=== PATIENT | female | born 1945 | race Caucasian/White ===

== ENCOUNTER 2021-11-25 18:41 | Emergency (ER) | payer MEDICARE, SELFPAY ==
--- NOTE | ~2021-11-25 | XR_ITS ---
EXAMINATION: XR HAND, RIGHT CLINICAL INFORMATION: Bruising swelling and pain COMPARISON: None TECHNIQUE: PA, lateral, and oblique views of the right hand. FINDINGS: No acute fracture or dislocation. Bone fragment adjacent to the ulnar styloid compatible with remote injury. Joint spaces the wrist are maintained. Minimal subchondral sclerosis/degenerative change the first CMC joint. MCP joint spaces are preserved. Mild IP joint osteoarthritis with small osteophytes most prominently at the fifth DIP joint. XR/XR hand RT min 3V IMPRESSION: No acute fracture or dislocation.
[2021-11-25 18:50] VITALS: BP 163/89; PULSE 110; RESP 18; TEMP 36.7; O2SAT 97; BMI 28.9
--- NOTE | 2021-11-25 20:18 | ED_ITS ---
HPI - Animal Bite General Chief Complaint: Animal Bite Stated Complaint: cat scratch on hand Time Seen by Provider: 11/25/21 21:52 Source: patient Mode of arrival: ambulatory Limitations: no limitations History of Present Illness HPI narrative: 76-year-old female presents for cat bite injury to the right hand that occurred last night. She noted some ecchymosis and swelling to the site, also noted some ecchymosis to the left wrist. Noted that she had a pinching sensation but does not recall any injury or trauma. She is concerned because she takes Coumadin. She has been scratched and bitten by her cat before but has not had any significant bruising or swelling prior. She has full range of motion to all d igits, and does not report fevers, chills, palpitations, dizziness, diaphoresis, or weakness. MD complaint: animal bite Onset (ago): day(s) (1) Animal: cat Description of animal: household pet and immunizations UTD Mechanism: bite and scratch Location - Extremities: right: hand Pain description: dull Severity scale (1-10): 2 Context: playing with animal Associated symptoms: erythema Related Data Patient tetanus UTD: No Previous Rx's Medication Instructions Recorded doxycycline monohydrate 100 mg 100 mg PO BID 10 days #20 caps 11/25/21 capsule Allergies Allergy/AdvReac Type Severity Reaction Status Date / Time adhesive tape AdvReac Intermediate Rash Verified 11/25/21 18:49 erythromycin base AdvReac Intermediate Diarrhea Verified 11/25/21 18:49 Penicillins AdvReac Intermediate Diarrhea Verified 11/25/21 18:49 Review of Systems Review of Systems: Constitutional: No Fever, No Chills ENT/Mouth: No Ear Pain, No Hoarseness, No sore throat Eyes: No Eye Pain, No Swelling, No Redness, No Foreign Body Cardiovascular: No Chest Pain, No SOB Respiratory: No Cough, No Dyspnea Gastrointestinal: No Nausea, No Vomiting, No Diarrhea, No abdominal Pain Genitourinary: No Dysuria, No Hematuria Musculoskeletal: positive right hand pain, No Myalgias, No Joint Swelling Skin: Multiple abrasions to the right hand, ecchymosis noted to the right hand and left wrist, No Skin lacerations, No rash Neuro: No Weakness, No Numbness, No Paresthesias, No Loss of Consciousness, No Dizziness, No Headache Psych: No Anxiety/Panic, No Depression Heme/Lymph: Positive easy bruising, no Lymphadenopathy Endocrine: No Polyuria, No Polydipsia Yes all other systems are reviewed and are negative [facility] Past Medical History Attestation statement: The following information was validated with the patient. Source: old records reviewed Social History Social History Advance Directives: No Advance Directives Information Provided: Yes Physical Exam ED Vital Signs: Vital Signs - 24 hr 11/25/21 18:50 Temperature 98.1 F Pulse Rate 110 H Respiratory Rate 18 Blood Pressure 163/89 H Pulse Oximetry 97 Oxygen Delivery Method Room Air BMI result Body Mass Index 28.9 Appearance: Alert. Oriented X3. No acute distress. Eyes: Pupils equal, round and reactive to light. ENT: Pharynx normal. Neck: Normal inspection. Neck supple. CVS: Tachycardic heart rate and rhythm. Pulses normal. Respiratory: No respiratory distress. Breath sounds normal. Abdomen: Soft and nontender. Skin: Multiple abrasions to the right hand, ecchymoses from the thenar process to the dorsal aspect of the right hand to the 3rd metacarpal. Skin warm and dry. Normal skin color. Normal skin turgor. Extremities: No lower extremity edema. Full range of motion to wrist and hands, strength 5/5 to all digits. Neuro: No motor deficit. No sensory deficit. Cranial nerves 2-12 intact. Course Course Course Narrative: 76-year-old female presents with injury from a cat bite to the right hand and bruising to the left wrist. Cat is fully vaccinated, patient is tachycardic on triage vitals. Will order labs, INR, and lactic with cultures. Patient does have ecchymosis and swelling to the right hand, no fluctuance or purulent drainage noted. Will order x-rays. Unknown when last Tdap vaccine was updated. X-rays are negative for acute findings. Labs are unremarkable. No indication of elevated white count lactic is negative. INR 1.8. She will follow-up with primary care physician regarding Coumadin dosing. Will treat with doxycycline as patient is allergic to penicillins. I did discuss photosensitivity reaction with doxycycline, patient understood that she must wear sunscreen, hat and long sleeves. Patient verbalized understanding of and agrees plan of care discharge home. Verbalized understanding of signs and symptoms indicating need for emergent intervention MDM - Animal Bite Differential Diagnosis Differential diagnosis: Likely cat bite Medical Records Attestation: I reviewed the patient's medical records. Lab Data Attestation: I reviewed the patient's lab results. Result diagrams: 11/25/21 21:36 11/25/21 22:00 Labs: Lab Results 11/25/21 11/25/21 11/25/21 Range/Units 21:36 21:36 21:36 WBC 7.5 (4.8-10.8) X10*3/uL RBC 4.85 (4.20-5.50) X10*6/uL Hgb 15.3 (12.0-16.0) g/dl Hct 45.7 (37.0-47.0) % MCV 94.2 (80.0-98.0) fL MCH 31.5 (27.0-33.0) pg MCHC 33.5 (31.0-35.0) g/dl RDW 13.5 (11.0-16.0) % Plt Count 227 (160-400) X10*3/uL MPV 9.7 (9.4-12.3) fL Immature Gran % (Auto) 0.3 (0.0-0.4) % Neut % (Auto) 61.3 (45-73) % Lymph % (Auto) 28.2 (20-40) % [place] % (Auto) 7.4 (2-11) % Eos % (Auto) 2.4 (0-4) % Baso % (Auto) 0.4 (0-2) % Lymph # (Auto) 2.1 (1.2-4.9) X10*3/uL [place] # (Auto) 0.6 (0.1-1.2) X10*3/uL Eos # (Auto) 0.2 (0.0-0.4) X10*3/uL Baso # (Auto) 0.0 (0.0-0.2) X10*3/uL Abs Immat Gran (auto) 0.02 (0.00-0.03) X10*3/uL Absolute Neuts (auto) 4.6 (2.0-8.3) x10*3/uL Absolute Nucleated RBC 0.000 (0.0-0.012) X10*3/uL Nucleated RBC % (auto) 0.0 (0.0-0.2) /100WBC PT 21.6 H (10.0-13.1) SEC INR 1.8 H (0.9-1.1) APTT 42.6 H (26.0-36.4) SEC Sodium (135-145) mmol/L Potassium (3.3-5.1) mmol/L Chloride (96-108) mmol/L Carbon Dioxide (22-29) mmol/L Anion Gap (12-20) BUN (9-16) mg/dL Creatinine (0.5-1.4) mg/dL Estim Creat Clear Calc Estimated GFR Random Glucose (60-115) mg/dL Lactic Acid 0.9 (0.5-2.0) mmol/L Calcium (8.4-10.2) mg/dL 11/25/21 Range/Units 22:00 WBC (4.8-10.8) X10*3/uL RBC (4.20-5.50) X10*6/uL Hgb (12.0-16.0) g/dl Hct (37.0-47.0) % MCV (80.0-98.0) fL MCH (27.0-33.0) pg MCHC (31.0-35.0) g/dl RDW (11.0-16.0) % Plt Count (160-400) X10*3/uL MPV (9.4-12.3) fL Immature Gran % (Auto) (0.0-0.4) % Neut % (Auto) (45-73) % Lymph % (Auto) (20-40) % [place] % (Auto) (2-11) % Eos % (Auto) (0-4) % Baso % (Auto) (0-2) % Lymph # (Auto) (1.2-4.9) X10*3/uL [place] # (Auto) (0.1-1.2) X10*3/uL Eos # (Auto) (0.0-0.4) X10*3/uL Baso # (Auto) (0.0-0.2) X10*3/uL Abs Immat Gran (auto) (0.00-0.03) X10*3/uL Absolute Neuts (auto) (2.0-8.3) x10*3/uL Absolute Nucleated RBC (0.0-0.012) X10*3/uL Nucleated RBC % (auto) (0.0-0.2) /100WBC PT (10.0-13.1) SEC INR (0.9-1.1) APTT (26.0-36.4) SEC Sodium 142 (135-145) mmol/L Potassium 4.0 (3.3-5.1) mmol/L Chloride 106 (96-108) mmol/L Carbon Dioxide 26 (22-29) mmol/L Anion Gap 14 (12-20) BUN 13 (9-16) mg/dL Creatinine 1.06 (0.5-1.4) mg/dL Estim Creat Clear Calc 46.8 Estimated GFR 50 Random Glucose 101 (60-115) mg/dL Lactic Acid (0.5-2.0) mmol/L Calcium 8.6 (8.4-10.2) mg/dL Imaging Data Hand x-ray: Attestation: I personally reviewed and interpreted this imaging study as follows: Radiologist's impression: EXAMINATION: XR HAND, RIGHT CLINICAL INFORMATION: Bruising swelling and pain? COMPARISON: None? TECHNIQUE: PA, lateral, and oblique views of the right hand. FINDINGS: No acute fracture or dislocation. Bone fragment adjacent to the ulnar styloid compatible with remote injury. Joint spaces the wrist are maintained. Minimal subchondral sclerosis/degenerative change the first CMC joint. MCP joint spaces are preserved. Mild IP joint osteoarthritis with small osteophytes most prominently at the fifth DIP joint.? XR/XR hand RT min 3V IMPRESSION: No acute fracture or dislocation. Discharge Plan Discharge Clinical Impression: Cat bite Patient Disposition: Home, Self-Care Instructions: Animal Bite (ED) Additional Instructions: You were evaluated for a cat bite to the right hand and forearm. We are treating you with doxycycline 100 mg twice a day for the next 10 days. This medication has a photosensitive reaction. Please wear hat, long sleeves and sunscreen while going out into the sunshine. Follow-up with primary care provider. Your INR is 1.8. Thank you for choosing this emergency department for evaluation. Please fo llow-up with primary care physician as needed. Return to the emergency department for any new, concerning, or worsening symptoms. Prescriptions: New doxycycline monohydrate 100 mg capsule 100 mg PO BID 10 Days Qty: 20 0RF Interventions: ED Discharge Assessment Last Done: 11/25/21 23:30 Discharge Date/Time: 11/25/21 23:32
[2021-11-25 21:43] LABS: Basophils Percent Auto 0.4 % (0-2); Eosinophils Absolute Auto 0.2 X10*3/uL (0.0-0.4); Eosinophils Percent Auto 2.4 % (0-4); Hematocrit 45.7 % (37.0-47.0); Hemoglobin 15.3 g/dl (12.0-16.0); Imm Gran Abs Auto 0.02 X10*3/uL (0.00-0.03); Imm Gran Pct Auto 0.3 % (0.0-0.4); Lymphocytes Absolute Auto 2.1 X10*3/uL (1.2-4.9); Lymphocytes Percent Auto 28.2 % (20-40); MANUAL DIFF FLAG NO; Mean Corpuscular HGB Conc 33.5 g/dl (31.0-35.0); Mean Corpuscular Hemoglobin 31.5 pg (27.0-33.0); Mean Corpuscular Volume 94.2 fL (80.0-98.0); Mean Platelet Volume 9.7 fL (9.4-12.3); Monocytes Absolute Auto 0.6 X10*3/uL (0.1-1.2); Monocytes Percent Auto 7.4 % (2-11); Neutrophils Absolute Auto 4.6 x10*3/uL (2.0-8.3); Neutrophils Percent Auto 61.3 % (45-73); Platelet Count 227 X10*3/uL (160-400); Red Blood Count 4.85 X10*6/uL (4.20-5.50); Red Cell Distribution Width 13.5 % (11.0-16.0); White Blood Count 7.5 X10*3/uL (4.8-10.8)
[2021-11-25 21:53] LABS: Lactic Acid 0.9 mmol/L (0.5-2.0)
[2021-11-25 21:55] LABS: INTERNATIONAL NORM RATIO 1.8 (0.9-1.1); Prothrombin Time 21.6 SEC (10.0-13.1)
[2021-11-25 21:58] LABS: Partial Thromboplastin Time 42.6 SEC (26.0-36.4)
[2021-11-25] MEDS: Diphth,Pertus(ACell),Tet Adult 0.5 ML SYRINGE IM (22:01)
[2021-11-25 22:31] LABS: Anion Gap 14 (12-20); Blood Urea Nitrogen 13 mg/dL (9-16); Calcium 8.6 mg/dL (8.4-10.2); Carbon Dioxide 26 mmol/L (22-29); Chloride 106 mmol/L (96-108); Creatinine Clr Calc Pharmacy 46.8; Estimated Glomerular Filt Rate 50; Glucose Random 101 mg/dL (60-115); Sodium 142 mmol/L (135-145)
== END 2021-11-25 23:32 | disposition home or self-care (01) ==
PROVIDERS: Nurse Practitioner Family; Emergency Provider Emergency Medicine
DX: S60.571A Other superficial bite of hand of right hand, initial encounter (principal); M79.641 Pain in right hand; W55.01XA Bitten by cat, initial encounter; Y93.9 Activity, unspecified; Y92.9 Unspecified place or not applicable; Y99.9 Unspecified external cause status; Z79.899 Other long term (current) drug therapy
CPT/HCPCS: 36415; 73130; 80048; 83605; 85025; 85610; 85730; 87040; 90471; 90715; 99282; 99284

== ENCOUNTER 2024-05-08 07:10 | Emergency (ER) | payer MEDICARE, SELFPAY ==
--- NOTE | ~2024-05-08 | XR_ITS ---
CLINICAL HISTORY: Fall, clavicular pain. 1 view left clavicle Comparison: None Findings: There is an acute nondisplaced fracture of left distal clavicle. Soft tissue structures appear intact. IMPRESSION: Acute nondisplaced fracture of left distal clavicle. This document has been electronically signed by: Jose E Disla on 05/08/2024 07:57:55
--- NOTE | ~2024-05-08 | XR_ITS ---
CLINICAL HISTORY: fall, pain 3 view left shoulder Comparison: None Findings: There is a nondisplaced fracture of the left distal clavicle. Soft tissue structures appear intact. IMPRESSION: 1. Nondisplaced fracture of the left distal clavicle. This document has been electronically signed by: Jose E Disla on 05/08/2024 07:52:18
--- NOTE | ~2024-05-08 | CT_ITS ---
CLINICAL HISTORY: S p mechanical fall on Coumadin CT head without contrast Comparison: None Findings: Bilateral periventricular hypodensities present. Age-related cortical volume loss is seen with associated mild prominence of the ventricular system. There is no evidence of hemorrhage, mass, or acute infarction. The visualized paranasal sinuses and mastoid air cells are normal. The orbits are unremarkable. No skull fracture. IMPRESSION: 1. No acute intracranial findings. 2. Mild chronic microvascular ischemic disease. This document has been electronically signed by: Jose E Disla on 05/08/2024 08:33:43
[2024-05-08 07:13] VITALS: BP 170/93; PULSE 82; RESP 19; TEMP 36.3; O2SAT 98; BMI 29.2
--- OUTSIDE RECORDS SUMMARY | 2024-05-08 07:13 | XMS_ITS | Patient Health Record ---
[facility] re[facility]riston Address [address] [place] [address] Care Team Providers Care Service Girl Name Role Phone Johnny Baptiste [facility], [facility] Provi saray Unavailable Елена Sahni Unavailable [phone] Allergies Allergen (clinical drug ingredient) Drug/Non Drug Allergy documented on EMR Reaction Allergy Type Onset Date Status Biaxin diarrhea Drug Allergy Active azithromycin Zithromax Z-Kenny diarrhea Drug Allergy Active Adhesive rash Allergy Active erythromycin Erythromycin diarrhea Drug Allergy A ctive Latex Latex rash Allergy Active Penicillin diarrhea Drug Allergy Active Reason For Referral No Information Medications Medication SIG (Take, Route, Frequency, Duration) Notes Start Date End Date Status Calcium + D3 Active Famotidine 20 MG Oral for 90 A ctive Ciclopirox Olamine 0.77 % 1 application to affected area Externally to feet Twice a day for 30 days Active Lisinopril 20 MG Oral for 90 A ctive Loratadine 10 MG as directed Orally Active Metoprolol Succinate ER 100 MG Oral for 90 Active Warfarin Sodium 5 MG Oral for 90 Active Immunizations Vaccine Route Administration Date Status Comme nts COVID-19 Moderna Vaccine Unknown 04/02/2021 Administered First Dose:06/20/20 Second Dose: 07/18/20 Social History Tobacco Use: Social History Observation Description Date Details (start date - stop date) Never Smoker NA - NA Tobacco Use/Smoking Question Answer Notes Are you a: nonsmoker Alcohol Screen Question Answer Notes Did you have a drink contain ing alcohol in the past year? Yes How often did you have a dri nk containing alcohol in the past year? Monthly or less (1 point) How often did you have 6 or more drinks on one occasion in the past year? Less than monthly (1 point) Points 2 Interpretation Negative Tobacco use other than smoking: Question Answer Notes Are you an other tobacco user? No Problems Problem Type SNOMED Code ICD Code Onset Dates Problem Status W/U Status Risk Notes Problem [id number] Osteoarthritis o f right ankle and foot (M19.071) Active confirmed Plan Of Treatment Pending Test Test Name Order Date X ray : Foot, right 3V 04/25/2021 Insurance Providers Payer Name Payer Address Payer Phone Subscriber Number Group Number Insured Name Patient Relationship to Insured Coverage Start Date Coverage End Date Medicare National [employer] [address] [place] [address] [id number] Erika Parker Self - patient is the insured [employer] [address] [place] [address] [id number] Erika Parker Self - patient is the insured Medical (General) History Medical History History ICD Code Back,Hip,and Knee pain CAD (Cholesterol) Gall bladder Heart disease High blood pressure Reflux ( GERD) Sciatica Headaches/Migraines Chicken pox Surgical History Surgery Date(Month/Year) gall bladder hysterectomy labiaplasty
--- NOTE | 2024-05-08 07:32 | ED.FALL ---
HPI - Fall General Chief Complaint: Fall Stated Complaint: fall 05/07, shoulder pain Time Seen by Provider: 05/08/24 07:25 Source: patient and family (Son) Mode of arrival: ambulatory Limitations: no limitations History of Present Illness ED Provider: DR. 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 Related Data Previous Rx's ?Medication ?Instructions ?Recorded doxycycline monohydrate 100 mg 100 mg PO BID 10 days #20 caps 11/25/21 capsule Allergies Allergy/AdvReac Type Severity Reaction Status Date / Time adhesive tape AdvReac Intermediate Rash Verified 05/08/24 07:17 erythromycin base AdvReac Intermediate Diarrhea Verified 05/08/24 07:17 Penicillins AdvReac Intermediate Diarrhea Verified 05/08/24 07:17 Review of Systems Review of Systems: All other systems are reviewed and are negative Constitutional: Reports as per HPI and Reports no additional constitutional complaints Eyes: Reports as per HPI and Reports no additional eye complaints Reports system reviewed and no additional complaints, except as documented Cardiovascular: Reports as per HPI and Reports no additional cardiovascular complaints Respiratory: Reports as per HPI and Reports no additional respiratory complaints Gastrointestinal: Reports as per HPI and Reports no additional gastrointestinal complaints Genitourinary: Reports no additional female genitourinary complaints Musculoskeletal: Reports no additional musculoskeletal complaints Skin/Breast: Reports system reviewed and no additional complaints, except as docu Psychiatric: Reports no additional psychiatric complaints Endocrine: Reports no additional endocrine complaints Hematologic/Lymphatic: Reports no additional hematologic/lymphatic complaints Allergic/Immunologic: Reports no additional allergic/immunologic complaints Reports system reviewed and no additional complaints, except as documented and Reports Abnormal speech present [facility] Social History Social History Advance Directives: No Advance Directives Information Provided: Yes Do you have a plan to hurt others: No Plan Physical Exam Vital Signs: Vital Signs: Last Vital Signs Temp 97.4 F 05/08/24 07:13 Pulse 82 05/08/24 07:13 Resp 19 05/08/24 07:13 BP 170/93 H 05/08/24 07:13 Pulse Ox 98 05/08/24 07:13 O2 Del Method Room Air 05/08/24 07:13 BMI result Body Mass Index 29.2 Vital signs have been reviewed and appear to be correct. Blood pressure elevated. Heart rate normal. Respiratory rate normal. Temperature normal. Oxygen saturation normal. Appearance: Alert. Oriented X3. No acute distress. Head: Normal external exam. Normocephalic. Atraumatic. No Read signs noted. No raccoon eyes noted Eyes: PERRLA. EOMI. Conjunctiva and sclera normal. Eyelids normal. ENT: TM's Normal. Pharynx normal. Uvula midline. Moist mucous membranes. No trismus noted. No drooling noted. No muffled voice noted. Neck: Normal inspection. Neck supple. FROM. No adenopathy. Thyroid Normal. No meningeal signs. No neck mass noted. CVS: Normal heart rate and rhythm. Heart sound normal. No murmurs noted. Pulses normal throughout. Respiratory: No respiratory distress. Painless inspiration. Breath sounds normal. No wheezes/rales/rhonchi noted. Chest nontender. No accessory muscle usage noted or decreased air movement noted. Abdomen: Soft and nontender. Bowel sounds normal in all 4 quadrants. No distention noted. No organomegaly noted. No visible injury noted. Back: No CVA tenderness. Full range of motion noted. Skin: Skin warm and dry. Normal skin color. Normal skin turgor. No rashes/lesions/lacerations noted. Extremities: Left shoulder: No deformity, limited range of motion due to pain, left upper extremity is neurovascularly intact. Neuro: Oriented X 3. Cranial nerve exam: II-XII are grossly intact No motor deficit. No sensory deficit. Reflexes normal. Course Reevaluation(s) Reevaluation #1: S/p mechanical fall with right shoulder pain, no acute fracture dislocation on x-ray. X-ray demonstrate left clavicular fracture, sling and follow-up with orthopedic use Tylenol or ibuprofen if needed for pain. GCS of 15, normal neuro exam, head CT is unremarkable for bleed, INR is subtherapeutic patient was instructed to take 1 extra Coumadin (5 mg tablet) and follow-up with her Coumadin Clinic. Time: 10:30 Medical Decision Making Differential Diagnosis Differential Diagnoses: The differential diagnosis associated with the presentation includes (Intracranial bleed, left shoulder fracture, left shoulder dislocation, left clavicle fracture, coagulopathy, severe anemia, electrolyte derangement.) Admission/Observation Consideration of admission/observation: Escalation of care including admission/observation considered Lab Data MDM Lab Attestation statement: I reviewed the patient's lab results. 05/08/24 07:48 05/08/24 07:48 Labs: Lab Results 05/08/24 Range/Units 07:48 WBC 8.7 (4.8-10.8) X10*3/uL RBC 4.29 (4.20-5.50) X10*6/uL Hgb 14.0 (12.0-16.0) g/dl Hct 40.9 (37.0-47.0) % MCV 95.3 (80.0-98.0) fL MCH 32.6 (27.0-33.0) pg MCHC 34.2 (31.0-35.0) g/dl RDW 13.7 (11.0-16.0) % Plt Count 208 (160-400) X10*3/uL MPV 9.8 (9.4-12.3) fL Immature Gran % (Auto) 0.3 (0.0-0.4) % Neut % (Auto) 77.2 H (45-73) % Lymph % (Auto) 15.0 L (20-40) % [place] % (Auto) 5.8 (2-11) % Eos % (Auto) 1.1 (0-4) % Baso % (Auto) 0.6 (0-2) % Lymph # (Auto) 1.3 (1.2-4.9) X10*3/uL [place] # (Auto) 0.5 (0.1-1.2) X10*3/uL Eos # (Auto) 0.1 (0.0-0.4) X10*3/uL Baso # (Auto) 0.1 (0.0-0.2) X10*3/uL Abs Immat Gran (auto) 0.03 (0.00-0.03) X10*3/uL Absolute Neuts (auto) 6.7 (2.0-8.3) x10*3/uL Absolute Nucleated RBC 0.000 (0.0-0.012) X10*3/uL Nucleated RBC % (auto) 0.0 (0.0-0.2) /100WBC PT 19.7 H (10.9-12.4) SEC INR 1.7 H (0.9-1.1) Sodium 138 (135-145) mmol/L Potassium 3.9 (3.3-5.1) mmol/L Chloride 107 (96-108) mmol/L Carbon Dioxide 26 (22-29) mmol/L Anion Gap 9 L (12-20) BUN 12 (9-16) mg/dL Creatinine 0.84 (0.5-1.4) mg/dL Estim Creat Clear Calc 55.4 Estimated GFR > 60 Random Glucose 98 (60-115) mg/dL Calcium 9.2 D (8.4-10.2) mg/dL Independent Interpretation I performed an independent interpretation of an: Plain X-Ray (Left shoulder/left clavicular x-ray: Left clavicular fracture.) and CT Scan (Head: No acute intracranial pathology.) Radiology Impression Discussion of test interpretation with radiology: I have reviewed the radiologist's reading. Discharge Plan Discharge Clinical Impression: Contusion of left shoulder, Closed fracture of left clavicle, Subtherapeutic international normalized ratio (INR) Patient Disposition: Home, Self-Care Instructions: Clavicle Fracture (ED), Contusion in Adults (ED) Additional Instructions: Take extra 5 mg of Coumadin tonight and recheck with your Coumadin clinic. Prescriptions: No Action doxycycline monohydrate 100 mg capsule 100 mg PO BID 10 Days Qty: 20 0RF Referrals: Dino Wright MD [Physician] - Jermain Delgado MD [Primary Care Provider] - Print Language: Telugu
[2024-05-08 07:55] LABS: MANUAL DIFF FLAG NO
[2024-05-08 07:57] LABS: Basophils Absolute Auto 0.1 X10*3/uL (0.0-0.2); Basophils Percent Auto 0.6 % (0-2); Eosinophils Absolute Auto 0.1 X10*3/uL (0.0-0.4); Eosinophils Percent Auto 1.1 % (0-4); Hematocrit 40.9 % (37.0-47.0); Imm Gran Abs Auto 0.03 X10*3/uL (0.00-0.03); Imm Gran Pct Auto 0.3 % (0.0-0.4); Lymphocytes Absolute Auto 1.3 X10*3/uL (1.2-4.9); Mean Corpuscular HGB Conc 34.2 g/dl (31.0-35.0); Mean Corpuscular Hemoglobin 32.6 pg (27.0-33.0); Mean Corpuscular Volume 95.3 fL (80.0-98.0); Mean Platelet Volume 9.8 fL (9.4-12.3); Monocytes Absolute Auto 0.5 X10*3/uL (0.1-1.2); Monocytes Percent Auto 5.8 % (2-11); Neutrophils Absolute Auto 6.7 x10*3/uL (2.0-8.3); Neutrophils Percent Auto 77.2 % (45-73); Platelet Count 208 X10*3/uL (160-400); Red Blood Count 4.29 X10*6/uL (4.20-5.50); Red Cell Distribution Width 13.7 % (11.0-16.0); White Blood Count 8.7 X10*3/uL (4.8-10.8)
[2024-05-08 08:07] LABS: INTERNATIONAL NORM RATIO 1.7 (0.9-1.1); Prothrombin Time 19.7 SEC (10.9-12.4)
[2024-05-08 08:12] LABS: Anion Gap 9 (12-20); Blood Urea Nitrogen 12 mg/dL (9-16); Calcium 9.2 mg/dL (8.4-10.2); Carbon Dioxide 26 mmol/L (22-29); Chloride 107 mmol/L (96-108); Creatinine Clr Calc Pharmacy 55.4; Estimated Glomerular Filt Rate > 60; Glucose Random 98 mg/dL (60-115); Potassium 3.9 mmol/L (3.3-5.1); Sodium 138 mmol/L (135-145)
--- NOTE | 2024-05-08 09:14 | PC.NURSE ---
patient noted to have left clavicle fracture, patient has bruise on left clavicle
--- NOTE | 2024-05-08 09:17 | PC.NURSE ---
sling applied to patient left arm
[2024-05-08 09:19] VITALS: BP 158/84; PULSE 82; RESP 20; TEMP 36.1; O2SAT 97
== END 2024-05-08 09:20 | disposition home or self-care (01) ==
PROVIDERS: Emergency Provider Emergency Medicine; PCP Family Medicine
DX: S42.035A Nondisplaced fracture of lateral end of left clavicle, initial encounter for closed fracture (principal); S40.012A Contusion of left shoulder, initial encounter; W01.0XXA Fall on same level from slipping, tripping and stumbling without subsequent striking against object, initial encounter; I48.91 Unspecified atrial fibrillation; R79.1 Abnormal coagulation profile; M25.512 Pain in left shoulder; Y93.G1 Activity, food preparation and clean up; Y92.010 Kitchen of single-family (private) house as the place of occurrence of the external cause; Y99.9 Unspecified external cause status; Z79.01 Long term (current) use of anticoagulants
CPT/HCPCS: 36415; 70450; 73000; 73030; 80048; 85025; 85610; 99284

== ENCOUNTER → 2024-05-08 07:35 | Outpatient (BNV) | payer MEDICARE, SELFPAY | PROVIDERS: Emergency Provider Emergency Medicine; PCP Family Medicine; Visit Provider Radiology Vascular & Interventional Radiology | DX: I67.82 Cerebral ischemia (principal); G89.11 Acute pain due to trauma; S42.035A Nondisplaced fracture of lateral end of left clavicle, initial encounter for closed fracture | CPT/HCPCS: 70450; 73000; 73030 ==

== ENCOUNTER → 2024-05-26 09:54 | Outpatient (BNV) | payer MEDICARE, SELFPAY | PROVIDERS: Visit Provider Radiology Diagnostic Radiology | DX: S42.035D Nondisplaced fracture of lateral end of left clavicle, subsequent encounter for fracture with routine healing (principal) | CPT/HCPCS: 73000 ==

== ENCOUNTER 2024-05-26 10:26 | Outpatient (REF) | payer MEDICARE, SELFPAY ==
--- NOTE | ~2024-05-26 | XR_ITS ---
EXAMINATION: XR CLAVICLE LEFT HISTORY: M89.8X1 - Other specified disorders of bone, shoulder COMPARISON: Comparison is made with the prior examination dated 05/08/2024. FINDINGS: Two views of the left clavicle are submitted. Osseous mineralization is normal. Again seen is a nondisplaced fracture of the distal clavicle. The fracture line remains visible. The AC joint is intact. The soft tissues are unremarkable. XR/XR clavicle LT IMPRESSION: Nondisplaced fracture of the distal clavicle without change. Electronically signed by: Bhanu Ellington MD 05/27/2024 07:15 AM [facility]
--- OUTSIDE RECORDS SUMMARY | 2024-05-27 13:58 | XMS_ITS | Data Portability ---
Author Organization EL[facility] Cowan [facility] [address] Address [address] [place] [address] Care Team Providers Care Audio Visual Coordinator Name Role Phone [facility] Primary Care Provider [phone] Assessment No assessment recorded. Plan of Treatment Reminders Order Date Submit Date Provider Last Modified By Organization Details Last Modified Time Details Appointments None record ed. Lab None record ed. Referral None record ed. Procedures None record ed. Surgeries None record ed. Imaging None record ed. Medication Orders None record ed. Patient TargetsNo targets recorded. Patient Instructions Encounter Date Encounter Id Patient Instructions Last Modified By Organization Details Last Modified Time 05/28/2022 [id number] knee pain or injury: care instructions Not available 05/28/2022 12:26:45 Recommend alternating ice and heat for comfort. Can trial topical pain medications such as Voltaren gel, Aspercreme, Salonpas or Arnica. Continue Tylenol as needed Not available 05/28/2022 12:39:29 Reason for Referral None Reported. Problems Name Problem SNOMED Code Status Onset Date Resolution Date Notes Provider Name and Address Organization Details Recorded Time Hypertensive disorder 80304300 Active 2022 BANRaeann reese, PA - [facility] 3 12:12:42 Atrial fibrillation 83944256 Active 2022 BAN reese, PA - [facility] 3 12:13:58 Problem Notes None recorded. Procedures Surgical History Date Name Laterality Status Provider Name and Address Organization Details Recorded Time 05/28/19 23 Liang Bandage completed Josey Castelan, DO [address] [place], [address], PA - [facility] 05/28/2022 12:45:40 hysterectomy completed BAN DEPINTO PA - [facility] 05/28/2022 12:15:02 cholecystectomy completed BAN DEPINTO PA - [facility] 05/28/2022 12:15:09 procedure on urinary bladder completed BAN DEPINTO PA - [facility] 05/28/2022 12:16:04 Imaging Results None recorded. Procedure Notes None recorded. Medical Equipment None Reported. Allergies Allergen ID Allergen Name Allergen Category Reaction Reaction Severity Criticality Documentation Date Start Date Code Code System Note Provider Name and Address Organization Details Recorded Time 775508 Product containin g penicilli n and antibioti c (product) medicatio n diarrhea Not available Not available 05/28/2022 53953 05 SNOMED BAN DEPINTO null, PA - [facility] 3 12:10:00 061106 erythromy vanessa medicatio n other Not available Not available 05/28/2022 4053 RxNorm BAN DEPINTO null, PA - [facility] 3 12:10:08 503960 adhesive tape environme nt,medica tion rash severe Not available 05/28/2022 65193 UNK BAN DEPINTO null, PA - [facility] 3 12:11:06 Medications Name Sig Start Date Stop Date Status Note LastModified by Organization Details LastModified Time lisinopril 20 mg tablet active Not Available Not Available No t Available metoprolol succinate ER 100 mg tablet,extend ed release 24 hr active Not Available Not Available Not Available famotidine 20 mg tablet active Not Available Not Available No t Available doxycycline monohydrate 100 mg capsule TAKE 1 CAP ORALLY 2 TIMES A DAY FOR 10 DAYS 05/28 completed Not Available Not Available Not Available warfarin 5 mg tablet active Not Available Not Available Not Available calcium active Not Available Not Avail able Not Available Vitals Date Recorded Body height Provider Name an d Address Organization Details Last Updated DateTime 05/28/2022 162.56 cm BAN DEPINTO PA - [facility] 0 05/28/2022 12:09:10 Date Recorded Body mass index (BMI) Body weight Provider Name and Address Organization Details Last Updated DateTime 05/28/2022 30 kg/m2 56236.66 g BAN DEPINTO PA - [facility] 05/28/2022 12:09:13 Date Recorded Pain severity - 0-10 verbal numeric rating [Score] - Reported Provider Name and Address Organization Details Last Updated DateTime 05/28/2022 0 BAN LESLIEO PA - [facility] 0 05/28/2022 12:09:35 Date Recorded Respiratory rate Provider Name a nd Address Organization Details Last Updated DateTime 05/28/2022 18 /min BAN LESLIEO PA - [facility] 0 05/28/2022 12:16:47 Date Recorded Oxygen saturation Oxygen saturation in Arterial blood by Pulse oximetry Provider Name and Address Organization Details Last Updated DateTime 05/28/2022 99 % 99 % BAN LESLIEO PA - [facility] 05/28/2022 12:17:11 Date Recorded Heart rate Provider Name an d Address Organization Details Last Updated DateTime 05/28/2022 61 /min BAN LESLIEO PA - [facility] 0 05/28/2022 12:17:13 Date Recorded Body temperature Provider Name a nd Address Organization Details Last Updated DateTime 05/28/2022 97.4 [degF] BAN LESLIEO PA - [facility] 05/28/2022 12:17:37 Date Recorded Systolic blood pressure Diastolic blood pressure Provider Name and Address Organization Details Last Updated DateTime 05/28/2022 123 mm[Hg] 74 mm[Hg] BAN LESLIEO PA - [facility] 05/28/2022 12:17:16 Social History Question Answer Notes LastModified by Organizat ion Details LastModified Time Tobacco Smoking Status Never Smoker BAN LESLIEAnthony reese, PA - [facility] 05/28/2022 12:14:44 What Is Your Level Of Alcohol Consumption? Occasional Information not available 05/28/2022 How Many Times Per Week Do You Consume Alcohol? Less Than 1 Time Per Week Information not available 05/28/2022 Do You Use Any Illicit Or Recreational Drugs? No Information not available 05/28/2022 Have You Recently Traveled Abroad? No Information not available 05/28/2022 Do You Or Have You Ever Used Any Other Forms Of Tobacco Or Nicotine? No Information not available 05/28/2022 Sex: Unknown Functional Status None recorded. Mental Status None recorded. Family History Relationship Description Onset Age of this Age Resolved Age Notes LastModified by Organization Details LastModified Time Father No current problems or disability Not available 05/28 12:14:31 Mother No current problems or disability Not available 05/28 12:14:31 Medical History No medical history recorded. Gynecological HistoryNo gynecological history recorded. Obstetrics History GPAL:G 0 P 0 0 0 0 Immunizations Vaccine Type Date Status Note Provider Nam e and Address Organization Details Recorded Time Influenza, split virus, quadrivalent, preservative 9 completed BAN DEPINTO null, PA - [facility] 05/28/2022 12:20:26 Influenza, high-dose, quadrivalent, PF 0 completed BAN DEPINTO null, PA - [facility] 05/28/2022 12:20:26 Influenza, high-dose, quadrivalent, PF 2 completed BAN DEPINTO null, PA - [facility] 05/28/2022 12:20:26 Influenza, high-dose, quadrivalent, PF 1 completed BAN DEPINTO null, PA - [facility] 05/28/2022 12:20:26 COVID-19, mRNA, LNP-S, PF, 100 mcg/0.5mL dose or 50 mcg/0.25mL dose 1 completed BAN DEPINTO null, PA - [facility] 05/28/2022 12:20:26 COVID-19, mRNA, LNP-S, PF, 100 mcg/0.5mL dose or 50 mcg/0.25mL dose 1 completed BAN DEPINTO null, PA - [facility] 05/28/2022 12:20:26 COVID-19, mRNA, LNP-S, PF, 100 mcg/0.5mL dose or 50 mcg/0.25mL dose 1 completed BAN DEPINTO null, PA - [facility] 05/28/2022 12:20:26 COVID-19, mRNA, LNP-S, bivalent, PF, 50 mcg/0.5 mL or 25mcg/0.25 mL dose 2 completed BAN DEPINTO null, PA - [facility] 05/28/2022 12:20:26 pneumococcal polysaccharide PPV23 1 completed BAN DEPINTO null, PA - [facility] 05/28/2022 12:20:26 Tdap 3 completed BAN DEPINTO null, PA - [facility] 05/28/2022 12:20:26 Tdap 2 completed BAN DEPINTO null, PA - [facility] 05/28/2022 12:20:26 Pneumococcal conjugate PCV 13 5 completed BAN DEPINTO null, PA - [facility] 05/28/2022 12:20:26 Influenza, high-dose, trivalent, PF 6 completed BAN DEPINTO null, PA - [facility] 05/28/2022 12:20:26 Influenza, high-dose, trivalent, PF 7 completed BAN DEPINTO null, PA - [facility] 05/28/2022 12:20:26 Influenza, high-dose, trivalent, PF 8 completed BAN DEPINTO null, PA - [facility] 05/28/2022 12:20:26 Influenza, high-dose, trivalent, PF 4 completed BAN DEPINTO null, PA - [facility] 05/28/2022 12:20:26 Influenza, split virus, trivalent, preservative 0 completed BAN DEPINTO null, PA - [facility] 05/28/2022 12:20:26 Influenza, split virus, trivalent, preservative 2 completed BAN DEPINTO null, PA - [facility] 05/28/2022 12:20:26 Influenza, split virus, trivalent, preservative 1 completed BAN DEPINTO null, PA - [facility] 05/28/2022 12:20:26 Influenza, split virus, trivalent, PF 3 completed BAN DEPINTO null, PA - [facility] 05/28/2022 12:20:26 Td (adult), 2 Lf tetanus toxoid, preservative free, adsorbed 1 completed BAN DEPINTO null, PA - [facility] 05/28/2022 12:20:26 Td (adult), 2 Lf tetanus toxoid, preservative free, adsorbed 6 completed BAN DEPINTO null, PA - [facility] 05/28/2022 12:20:26 Influenza, split virus, quadrivalent, PF 5 completed BAN DEPINTO null, PA - [facility] 05/28/2022 12:20:26 Past Encounters Encounter ID Performer Location Encounter Start Date Encounter Closed Date Diagnosis/Indication Diagnosis SNOMED-CT Code Diagnosis ICD10 Code Diagnosis [place] [id number] [place] [address] [address] 05/28/2022 09:32:00 05/28/2022 12:41:41 Pain of right knee joint 1183281085 67216 M25.561 Health Concerns Section Related Observation LastModified by Organization Detai ls LastModified Time None Recorded Concern Status LastModified by Organization Details LastModified Time None Recorded Advance Directives Directive None Recorded Payers Encounter Date Sequence Insurance Name Policy Number Policy Silver Covered Member ID Silver Member ID Guarantor Name 05/28/2022 1 [place] [employer] Erika Trejo [id number] Erika Trejo 05/28/2022 2 [place] [id number] Erika Trejo [id number] Erika Trejo Notes Date Note Type Note Provider Name and Address Organization Details Recorded Time 05/28/2022 text/html Accompanied by sonR knee pain x 4 days. Atraumatic. Feels sharp, occurs with weight bearing, improves after walking. Ambulating with cane due to pain. Selt treatment: heat, ES Tylenol x 2 days. Josey Castelan DO [address] [place], [address], [place] - [facility] 05/28/2022 12:46:47 OBGyn Episode No OBEpisode recorded.
--- OUTSIDE RECORDS SUMMARY | 2024-05-27 13:58 | XMS_ITS | Patient Health Record ---
Author Organization [facility] Address [address] [place] [address] Care Team Providers Care Burr Sander Name Role Phone [facility] Provi saray Unavailable Елена Sahni Unavailable [phone] Allergies Allergen (clinical drug ingredient) Drug/Non Drug [...] Problem Status W/U Status Risk Notes Problem [id number] Osteoarthritis o f right ankle and foot (M19.071) Active confirmed Plan Of Treatment Pending Test Test Name Order Date X ray : Foot, right 3V 04/25/2021 Insurance Providers Payer Name Payer Address Payer Phone Subscriber Number Group Number Insured Name Patient Relationship to Insured Coverage Start Date Coverage End Date Medicare National Govt Svcs Inc [address] [place] [address] [id number] Erika Parker Self - patient is the insured [employer] [address] [place] [address] [id number] Erika Parker Self - patient is the insured Medical (General) History Medical History History ICD Code Back,Hip,and Knee pain CAD (Cholesterol) Gall bladder Heart disease High blood pressure Reflux ( GERD) Sciatica Headaches/Migraines Chicken pox Surgical History Surgery Date(Month/Year) gall bladder hysterectomy labiaplasty
== END 2024-05-26 10:27 | disposition home or self-care (01) ==
LOC: HO.HOSX 10:26
PROVIDERS: Visit Provider Physician Assistant
DX: S42.035A Nondisplaced fracture of lateral end of left clavicle, initial encounter for closed fracture (principal); X58.XXXA Exposure to other specified factors, initial encounter; Y93.9 Activity, unspecified; Y92.9 Unspecified place or not applicable; Y99.9 Unspecified external cause status
CPT/HCPCS: 73000; 99202

== ENCOUNTER 2024-09-07 08:14 | Outpatient (AMB) | payer MEDICARE, SELFPAY ==
--- NOTE | 2024-09-07 08:16 | MHC.OFFVIS ---
Vital Signs 09/07/24 08:17 Height 5 ft 4 in Weight 162 lb BMI 27.8 BP 100/70 Blood Pressure Location Rt brachial Position Sitting Pulse 84 Pulse Source Pulse Oximeter Pulse Oximetry (%) 97 Oxygen Delivery Method Room Air Intake Visit Reasons: ENP PSP-movement disorder and cognitive impairment Intake Note: patient referred for movement disorder Allergies adhesive tape Adverse Reaction (Intermediate, Verified 09/07/24 08:19) Rash erythromycin base Adverse Reaction (Intermediate, Verified 09/07/24 08:19) Diarrhea Penicillins Adverse Reaction (Intermediate, Verified 09/07/24 08:19) Diarrhea Medication List - Last Reconciled 09/07/24 by Jaqui Carpio MD carbidopa-levodopa 25-100 mg 1 tab PO BID donepezil 10 mg PO DAILY famotidine mg PO DAILY lisinopril 30 mg PO DAILY loratadine (Allergy Relief (loratadine)) 10 mg PO DAILY metoprolol succinate ER mg PO DAILY warfarin 5 mg PO DAILY HPI Comments Details: 79y/o Right Handed female with cognitive impairment comes for evaluation of gait and mobility issues ? parkinsons. she sees Dr Enriquez for her cognitive impairment. she scored 21/30 in her MOCA and is on donepezil.she is accompanied by her son who helps with history. In the past 2 years her family noticed slowing, gait difficulty , with falls. she has has worsened in the past year and she started using a walker recently and is doing better. Memory- word finding difficulty, wrong words, difficulty expressing sleep- no abnormal behavior Mood-mild depressed,gets upset when she cannot find words. not motivated speech-multiple paraphasias, expressive difficulties, softer speech, no drooling She has troubelw riting , using fork and knife, slower in dressing, slow in showering . Gait- uses a walker , smaller steps and cannot stop leading to falls. No tremors No dizziness No swallowing issues No hallucinations she has double vision in near sight. Bowel movements -good Urine- mild incontinence urgency Head injury- none [facility] Medical History (Updated 09/09/24 @ 10:33 by Jaqui Carpio MD) Gait abnormality Mild cognitive impairment Complication of systemic hypertensive disorder Hypercoagulable state Afib GERD (gastroesophageal reflux disease) Osteoarthritis Benign paroxysmal positional vertigo Unsteady gait when walking Surgical History H/O total hysterectomy Family History Father CVA (cerebrovascular accident due to intracerebral hemorrhage) Social History Patient Tobacco Use Status: Never used Tobacco Current occupational status: unemployed and retired Physical Exam Vital Signs: Last Vital Signs Pulse 84 09/07/24 08:17 BP 100/70 09/07/24 08:17 Pulse Ox 97 09/07/24 08:17 Oxygen Delivery Method Room Air 09/07/24 08:17 BMI result Body Mass Index 27.8 Const General: cooperative, healthy appearing, comfortable and no acute distress Nutritional Appearance: overweight Eyes Pupils: Equal, round and reactive pupils present Neuro Other: moderate bradykinesia decreased facial expression , blink Hypophonia No tremors Difficulty with tongueprotrusion No cog wheel rigidity FFM and foot taps - decreased significantly Gait- without walker - very slow , small steps , stooped , with walker stride is better, normal base. Nystagmus - horizontal on romain lateral gaze and upgaze speech-dysarthria, word finding difficulty hypophonia General: moves all extremities Cranial nerves: Yes Facial sensation intact/muscles of mastication intact, Yes Equal, round and reactive pupils present, Yes Normal facial strength present and Yes Midline tongue present Cognition (Neuro): abnormal cognition Motor exam (neuro): 5/5 motor strength present throughout Deep tendon reflexes (DTR's): Right triceps reflex intensity grade: 2+, Left triceps reflex intensity grade: 2+, Rt Biceps (C5, C6): 2+, Left biceps reflex intensity grade: 2+, Right brachioradialis reflex intensity grade: 2+, Left brachioradialis reflex intensity grade: 2+, Right patellar reflex intensity grade: 1+ and Left patellar reflex intensity grade: 1+ Coordination: [id number] test normal Orientation What is the (year) (season) (date) (day) (month)?: year, season, date and month Where are we (state) (county) (town or city) (hospital) (floor)?: state, town or city, hospital/clinic and floor Registration Name of 3 unrelated objects clearly and slowly, then ask patient to repeat all 3 of them. (1st repeat determines score. Make sure they can repeat all three): object 1, object 2 and object 3 Attention & Calculation (CHOOSE ONE) Spell WORLD backwards (DLROW): 3 letters Recall Ask patient to repeat the 3 items from question #3.: object 2 Language Show patient a wristwatch & ask what it is. Repeat for pencil.: watch and pencil Ask the patient to repeat the phrase 'No ifs, ands, or buts' after you.: correct Ask the patient to 'take a piece of paper with their right hand' 'fold paper in half' 'place paper on floor': take paper in right hand, fold paper in half and place paper on floor Print the sentence 'CLOSE YOUR EYES' on a piece. If patient actually closes eyes then score.: followed written direction Give patient a blank piece of paper & ask to write a sentence. Score if it contains a noun & verb.: sentence contains subject and verb Score Score: 23 Assessment & Plan Assessment & Plan (1) Mild cognitive impairment: Code(s): G31.84 - Mild cognitive impairment of uncertain or unknown etiology Category: Medical (2) Gait abnormality: Comment: ? parkinsonism Code(s): R26.9 - Unspecified abnormalities of gait and mobility Category: Medical Plan Restart donepezil at 5 mg qd- assess diarhea and conside rincrease I will trial her on carbidopa/levodopa 25/100 1 tab bid will consider starting memantine PET [facility] at [facility] Continue PT speech therapy Orders: Orders TSH reflex Free T4 09/07/24 G31.84 - Mild cognitive impairment of uncertain or unknown etiology Vitamin B12 and Folate 09/07/24 G31.84 - Mild cognitive impairment of uncertain or unknown etiology PET Brain beta amyloid 09/07/24 G31.84 - Mild cognitive impairment of uncertain or unknown etiology Medications: New carbidopa-levodopa 25-100 mg 1 tab PO BID 60 tabs 6RF Coding Level of Care Code New Pt Level 4 (58978) Complex EM visit Add On G2211 Diagnoses Mild cognitive impairment G31.84 Gait abnormality R26.9
[2024-09-07 08:17] VITALS: BP 100/70; PULSE 84; O2SAT 97; BMI 27.8
--- OUTSIDE RECORDS SUMMARY | 2024-09-07 08:25 | XMS_ITS | Patient Health Record ---
Author Organization [facility] reyna LunaMarana Address [address] [place] [address] Care Team Providers Care Electrical Engineer Mep Name Role Phone [facility] Provi saray Unavailable Елена Sahni Unavailable [phone] Allergies Allergen (clinical drug ingredient) Drug/Non Drug [...] Problem Status W/U Status Risk Notes Problem 088891673165266 Osteoarthritis o f right ankle and foot (M19.071) Active confirmed Plan Of Treatment Pending Test Test Name Order Date X ray : Foot, right 3V 04/25/2021 Insurance Providers Payer Name Payer Address Payer Phone Subscriber Number Group Number Insured Name Patient Relationship to Insured Coverage Start Date Coverage End Date Medicare National Govt Svcs Inc [address] [place] [address] [id number] Erika Parker Self - patient is the insured [employer] [address] [place] [address] [phone] [id number] Erika Parker Self - patient is the insured Medical (General) History Medical History History ICD Code Back,Hip,and Knee pain CAD (Cholesterol) Gall bladder Heart disease High blood pressure Reflux ( GERD) Sciatica Headaches/Migraines Chicken pox Surgical History Surgery Date(Month/Year) gall bladder hysterectomy labiaplasty
--- OUTSIDE RECORDS SUMMARY | 2024-09-07 08:25 | XMS_ITS | Data Portability ---
Author Organization [facility] Cowan [facility] [address] Address [address] [place] [address] Care Team Providers Care Sales Merchandising Specialist Name Role Phone [facility] Primary Care Provider [phone] Assessment No assessment recorded. Plan of Treatment [...] By Organization Details Last Modified Time 05/28/2022 [id number] knee pain or injury: care instructions Not [...] Address Organization Details Recorded Time Hypertensive disorder 32546971 Active 2022 BANRaeann reese, PA - [facility] 12:12:42 Atrial fibrillation 21965202 Active 2022 BAN ABRIL reese, PA - [facility] 3 12:13:58 Problem Notes None recorded. Procedures Surgical History Date Name Laterality Status Provider Name and Address Organization Details Recorded Time 05/28/19 23 Liang Bandage completed Josey Castelan, DO [address] [place], [address], [place] - [facility] 05/28/2022 12:45:40 hysterectomy [...] Name and Address Organization Details Recorded Time 978798 Product containin g penicilli n (product) medicatio n diarrhea Not available Not available 05/28/2022 59850 8001 SNOMED BAN DEPINTO null, PA - [facility] 3 12:10:00 859319 erythromy vanessa medicatio n other Not available Not available 05/28/2022 4053 RxNorm BAN DEPINTO null, PA - [facility] 3 12:10:08 605258 adhesive tape environme nt,medica tion rash severe Not available 05/28/2022 40200 UNK BAN DEPINTO null, [facility] - [facility] [...] Not Available Vitals Date Recorded Body height Body mass index (BMI) Body weight Pain severity - 0-10 verbal numeric rating [Score] - Reported Respiratory rate Oxygen saturation Oxygen saturation in Arterial blood by Pulse oximetry Heart rate Body temperature Systolic blood pressure Diastolic blood pressure Provider Name and Address Organization Details Last Updated DateTime 3 162.56 cm 30 kg/m2 05859.6 6 g 0 18 /min 99 % 99 % 61 /min 97.4 [degF] 123 mm[Hg] 74 mm[Hg] BAN DEPINTO PA - [facility] 3 12:17:16 Social History Question Answer Notes LastModified by Organizat ion Details LastModified Time Tobacco Smoking Status Never Smoker BAN DEPINTO null, PA - [facility] 05/28/2022 12:14:44 Have You Recently Traveled Abroad? No Information not available 05/28/2022 Sex: Unknown Functional Status Question Answer Note LastModified by Organizat ion Details LastModified Time How many times per week do you consume alcohol? Less than 1 time per week Information not available 05/28/2022 Do you use any illicit or recreational drugs? No Information not available 05/28/2022 Do you or have you ever used any other forms of tobacco or nicotine? No Information not available 05/28/2022 What is your level of alcohol consumption? Occasional Information not available 05/28/2022 Mental Status None recorded. Family History Relationship [...] SNOMED-CT Code Diagnosis ICD10 Code Diagnosis Note [id number] [place] [address] [address] 05/28/2022 09:32:00 05/28/2022 12:41:41 Pain of right knee joint 8494098584 58058 M25.561 Health Concerns Section Related Observation LastModified by Organization Detai ls LastModified Time None Recorded Concern Status LastModified by Organization Details LastModified Time None Recorded Advance Directives Directive None Recorded Payers Insurance Date Sequence Insurance Name Policy Number Policy Silver Covered Member ID Silver Member ID Guarantor Name 05/28/2022 1 [place] [employer] Erika Wong Maya [id number] Erika Trejo 05/28/2022 2 [place] [id number] Erika L Maya [id number] Erika Trejo Notes Date Note Type Note Provider Name and Address Organization Details Recorded Time 05/28/2022 text/html Accompanied by sonR knee pain x 4 days. Atraumatic. Feels sharp, occurs with weight bearing, improves after walking. Ambulating with cane due to pain. Selt treatment: heat, ES Tylenol x 2 days. Josey Castelan, DO [address] [place], [address], [place] - [facility] 05/28/2022 12:46:47 OBGyn Episode No OBEpisode recorded.
--- OUTSIDE RECORDS SUMMARY | 2024-09-07 08:25 | XMS_ITS | Data Portability ---
Author Organization [facility], [facility] Address [address] [address] Care Team Providers Care Insurance Risk Analyst Name Role Phone ZEV CULVER Primary Care Provide r Assessment Encounter Date Assessment Date Assessment LastModified by Organization Details LastModified Time 06/29/2024 06/29/2024 Assessment and p romero based on Geriatric 5 M framework (Mind, Mobility, Multicomplexity, Medications, and Matters Most) This is a 79 y/o woman with PMH sig for htn, afib, hypercoagulability state, OA, OP, GERD, BPPV, seen for initial geriatric evaluation in light of cognitive impairment and gait instability. Mind: Cognition: Cognitive impairment which seems c/w MCI vs more likely, mild dementia and Parkinsonism, based on history, exam and MOCA assessment. Ddx includes Frontotemporal dementia (FTD) such as PSP, PPA, or a vascular etiology though symptoms have come on gradually over the past 5 years Initial history of memory changes: Per Erika: She is having difficulty as far as remembering words in conversation, particular words. They will come back eventually but pt finds this frustrating. Started having a difficult time paying bills. No financial scams. Denies VH/AH/delusions, denies tremors but notes shuffling when she is walking. Feels like she is getting slower and more quiet. She used to be much louder. No urinary incontinence. Sense of smell and taste is fine she thinks Per son Yang: He started noticing changes around 5 years ago that initially progressed in a gradual way but ramping up over the last 1-2 years. She was both slurring her speech like she was drunk and getting a little wobbly which was initially attributed it to her knees. He sees his mom very often and has noticed these changes. She is very lethargic and slow - this is a big change - she used to fly around the house. She was always a very talkative person, would go to the senior center and play cards - and doesnt do that anymore. He wondered if she has PSP after looking at the internet. He wonders what can be done to help/reverse things. We discussed possible diagnoses today, my concern that this is a progressive disease process and the need to get resources and help in place. Appreciate son's willingness to help and oversee things, knowing he too has a busy life. Labs: Head imaging: none in our records Assessment: MOCA done by [facility]. Difficulty on tasks measuring working memory and language fluency. Plan: Further w/u: Son will check on labs including B12, folate, MMA and TSH - if not done we will order Will order MRI Brain I think it crucial that Erika be seen for a Movement disorders/Neurology evaluation - could be [facility] or she asked about [facility]. Son will check on insurance and then I can put in referral. Would ensure that family oversees finances, medications (bottles were filled and out of date but son will check on meds to ensure other bottles are more current) Agree with no further driving - Erika understands. Will need to start planning for the short term and longer term, appreciating that finances are limited. Gave son information on [facility]. He will need to contact them to see what services are available in the order. There are some things that we know can help with overall cognition. Important to be an active listener - repeat back, write things down. Our ability to multi- task gets worse as we get older Try to just do one thing at a time Physical activity is the best thing - 30 minutes 4-5 times a week but start off slow and build up Mental activity - learning a new skill Social activity Meditation and/or Chuy Chi can help Diagnosis reviewed? Yes Mood: Gets anxiety about paying bills but otherwise denies mood problems. Plan: Will monitor Mobility: Gait instability with multiple falls at high risk for recurrent falls with injuries. Mobility: Erika says she started using walker about a year ago, when she fell. She falls forwards because she is going to go and do something (has trouble coming up with the words) . She falls bending over to get something. Son says today, getting into the car, it looked like she was going to fall to the side. She doesnt have a lifeline. PT came at the beginning when she was not that bad. Plan: Continue with walker - appreciate she will continue bending down to do things like feed her cat Will put in an order for PT and hopefully home safety evaluation. Not doing anything at all for movement - appreciate has OA which limits but very deconditioned. Would get a lifeline Multicomplexity: - Needs to get to the dentist and eye doctor - unclear etiology of vision changes - Edema - would ensure PCP aware - may have some component of dependent edema Medications: Plan: Ensure that meds are in pill box and family overseeing. She is on coumadin and family now has monitoring INR at home. Matters most: helping my family, not being a burden Family: continued independence ACP: Health care proxy: Yes sons Yang & Satish - son will pay Molst: no I personally spent 150 minutes preparing for, caring for the patient (F2F and non-F2F), and finalizing the visit for this patient, which included discussion with patient and/or family about diagnosis, prognosis, recommendations, risk/benefits, risk reduction and education of above. Thank you for this interesting consult. Will f/u in 1 month for CCP. Not available 06/29/2024 13:41:43 08/11/2024 08/11/2024 Assessment and p romero based on Geriatric 5 M framework (Mind, Mobility, Multicomplexity, Medications, and Matters Most) This is a 79 y/o woman with PMH sig for htn, afib, hypercoagulability state, OA, OP, GERD, BPPV, seen for f/u geriatric evaluation in light of cognitive impairment and gait instability. Elements: 1. Cognition: Cognitive impairment which seems c/w mild dementia and Parkinsonism, based on history, exam and MOCA assessment. Ddx includes Frontotemporal dementia (FTD) such as PSP, PPA, or a vascular etiology though symptoms have come on gradually over the past 5 years Initial history of memory changes: Per Erika: She is having difficulty as far as remembering words in conversation, particular words. They will come back eventually but pt finds this frustrating. Started having a difficult time paying bills. No financial scams. Denies VH/AH/delusions, denies tremors but notes shuffling when she is walking. Feels like she is getting slower and more quiet. She used to be much louder. No urinary incontinence. Sense of smell and taste is fine she thinks Per son Yang: He started noticing changes around 5 years ago that initially progressed in a gradual way but ramping up over the last 1-2 years. She was both slurring her speech like she was drunk and getting a little wobbly which was initially attributed it to her knees. He sees his mom very often and has noticed these changes. She is very lethargic and slow - this is a big change - she used to fly around the house. She was always a very talkative person, would go to the senior center and play cards - and doesnt do that anymore. He wondered if she has PSP after looking at the internet. He wonders what can be done to help/reverse things. We discussed possible diagnoses at initial visit; My concern that this is a progressive disease process and the need to get resources and help in place. Appreciate son's willingness to help and oversee things, knowing he too has a busy life. Since last visit, they have done a tremendous amt - get a gold star - They [facility] coming [facility]. Labs: Head imagin06/2024: no acute findings. Mild chronic vessel ischemia Assessment: MOCA done by Dr Andi Iyer, [facility]. Difficulty on tasks measuring working memory and language fluency. Plan: Further w/u: Son will check on labs including B12, folate, MMA and TSH - will check I think it crucial that Erika be seen for a Movement disorders/Neurology evaluation - could be [facility]/[place]. - They have an appt with Dr Kelley, Neurology - Would also put referral in to [facility], Dr Robert but can take close to a year. Medications: We talked about starting donepezil, a cholinesterase inhibitor May slow down progression of cognitive impairment by about 6 months They will look into and let me know SE include Gi, incontinence and vivid dreams. Agree with no further driving - Erika understands. Continue planning for the short term and longer term, appreciating that finances are limited, [facility]. There are some things that we know can help with overall cognition: Important to be an active listener - repeat back, write things down. Our ability to multi- task gets worse as we get older Try to just do one thing at a time Physical activity is the best thing - 30 minutes 4-5 times a week but start off slow and build up Mental activity - learning a new skill Social activity Meditation and/or Chuy Chi can help Diagnosis reviewed? Yes 2. Function: a. Lugo ADL: 6 b. Nitro-Jose IADL: 5 needs help with shopping, transportation, food prep, finances c. Plan: Family overseesing medications, finances. They have MOW and are getting [facility] to come in and assess for more help. 3. Stage of cognitive impairment: a. Dementia Severity Rating Scale (DSRS) : Mild - 15 - changes in memory, speech, orientation to time, ability to make decisions, social and home activities, cleanliness, b. Plan: i. Continue to think about planning for the future based on stages and care recommendations 4. Decision-making: a. 3 level rating scale global clinician judgement: Able b. (Able to make own decisions, not able to , uncertain/needs more evaluation) c. Plan: able at this point to make medical decisions with family. 5. Neuropsychiatric symptoms: apathy, motor disturbance, safety/falls a. Assessment tool: NPI-Q (12 items) Severity: 2/ Distress to caregiver: 2 Gets anxiety about paying bills but otherwise denies mood problems. b. Plan: Would think about getting out more - could consider going to senior center but appreciate she doesnt want to do that anymore. Would monitor - if feeling anxious, frustrated - could start sertraline 25 mg 6. Medication review and reconciliation: a. Medications reviewed and reconciled: Yes b. PIMs (Potentially Inappropriate Medications) identified: None c. Administration: Ensure that meds are in pill box and family overseeing. Son is monitoring and things are going well She is on coumadin and family now has monitoring INR at home. 7. Safety: a. Safety Assessment Guide: i. Is the patient still driving? no ii. Is the patient taking medications as prescribed? yes iii. Are there concerns about safety in the home? yes iv. Has the patient gotten lost in familiar places or wandered? no v. Are firearms present in the home? no vi. Has the patient experienced unsteadiness or sustained falls? yes vii. Does the patient live alone? no From initial visit: Erika says she started using walker about a year ago, when she fell. She falls forwards because she is going to go and do something (has trouble coming up with the words) . She falls bending over to get something. b. Plan: They have referral to [facility] - would like referral to [facility] Mobility: Gait instability with multiple falls at high risk for recurrent falls with injuries. Plan: Continue with walker at all times - appreciate she will continue bending down to do things like feed her cat Continue with PT/home safety evaluation. Not doing anything at all for movement - appreciate has OA which limits but very deconditioned. They are looking to get a lifeline 8. Caregiver identification and needs assessment: a. Assessment tool: Stress thermometer: moderate ; ZARIT-12: 9 b. Plan: WIll have our dementia senior care provider reach out to family -and to talk to her . 9. Advance care planning: helping my family, not being a burden Family: continued independence a. Checklist reviewed b. Plan (Preferences and legal needs): c. HCP: Yes sons Yang & Satish sons - completed - asked to give a copy d. MOLST: No e. POA: They will work on that. f. Is there an emergency plan in case the caregiver is unable to provide care?: son is there to help. Patient and caregiver resources discussed and/or handed out More than 50% of this 70 minute visit was spent face to face with the patient and/or family caregiver, providing counseling, decision making, and coordination of care. Written plan discussed with and given to the patient and/or family caregiver. Written plan shared with PCP Will f/u in 6 months for repeat CCP Multicomplexity: - They have an eye appt - Edema she is wearing compression stockings. I personally spent 80 minutes preparing for, caring for the patient (F2F and non-F2F), and finalizing the visit for this patient, which included discussion with patient and/or family about diagnosis, prognosis, recommendations, risk/benefits, risk reduction and education of above. Not available 08/11/2024 10:36:39 Plan of Treatment Reminders Order Date Submit Date Provider Last Modified By Organization Details Last Modified Time Details Appointments COGNITIVE CARE PLANS 2024 09:30A M Sandra Enriquez MD Not available Not available Not available Lab None recorded. Referral speech language pathologi st referral - call alis almonte [phone] to schedule. has dysarthri a, trouble with word finding. getting PT [email or web address] - Intake, [address], [address], [place], [address], 09/05/2024 10:20:26 neurologi referral - Call alis almonte [phone] to schedule . has dementia with parkinson ism - please evaluate and treat. 2024 025 ASHTYN Robert MD, [address] [facility] [address], [place], [address], 08/11/2024 10:33:40 home health referral - parkinson ism, falls, atrial fibrillat ion. [email or web address], [address], [place], [address], 09/02/2024 16:03:54 Procedures None recorded. Surgeries None recorded. Imaging MRI, head, w/o contrast - MRI Brain. Call alis almonte to schedule. Concern for PSP. [email or web address] [facility], [address] [place], [address], 07/16/2024 21:50:08 Medication Orders None recorded. Patient TargetsNo targets recorded. Patient InstructionsNo instructions recorded. Reason for Referral Home Health Referral for Uns teady when walking parkinsonism, falls, atrial fibrillation. parkinsonism, falls, atrial fibrillation. Can call alis almonte [phone] to help arrange if Erika doesnt answer Referring Physician: Sandra Enriquez, Geriatric Medicine, Encounter Date: 06/29/2024 Neurologist Referral for Par kinsonism has dementia with parkinsonism - please evaluate and treat. Call alis almonte [phone] to schedule . has dementia with parkinsonism - please evaluate and treat. Referring Physician: Sandra [facility], Encounter Date: 08/11/2024 Speech Language Pathologist Referral for Dysarthria has dysarthria, trouble with word finding. getting PT call alis almonte [phone] to schedule. has dysarthria, trouble with word finding. getting PT Referring Physician: Sandra [facility], Encounter Date: 08/11/2024 Results Created Date Observation Date Name Description Value Unit Range Abnormal Flag Note LastModifiedBy Organization Detail LastModifiedTime 07/20/1907/15/2024 MRI, head, w/o contr ast No observ ation record ed. [facility] [address] [place], [address], 07/20/2024 19:09:34 Result Notes None recorded. Problems Name Problem SNOMED Code Status Onset Date Resolution Date Notes Provider Name and Address Organization Details Recorded Time Hypertensive disorder 97242371 Active 2024 Sandra Enriquez MD [address] [facility],[address], [address], [employer] 5 07:35:47 Hypercoagulabi [facility] state 88808217 Active 2024 Sandra Enriquez MD [address] [facility],[address], [address], [employer] 5 07:36:18 Atrial fibrillation 47821005 Active 2024 Sandra Enriquez MD [address] [facility],[address], [address], [employer] 5 07:36:27 Osteoporosis 78548800 Active 2024 Sandra Enriquez MD [address] [facility],[address], [address], [employer] ([employer]) 5 07:36:34 Gastroesophage al reflux disease 925718460 Active 2024 Sandra Enriquez MD [address] [facility] [address], [place], [address], [employer]) 07:36:40 Osteoarthritis 342962625 Active 2024 Sandra Enriquez MD [address] [facility] [address], [place], [address], [employer]) 07:36:50 Benign paroxysmal positional vertigo 188663420 Active 2024 Sandra Enriquez MD [address] [facility] [address], [place], [address], [employer] 07:38:28 Unsteady when walking 51253020 Active 2024 Sandra Enriquez MD [address] [facility],[address], [place], [address], [employer] 10:59:47 Problem Notes None recorded. Procedures Surgical History None recorded. Imaging Results Imaging Date Name Status LastModified by Organiz ation Details LastModified Time 07/15/2024 MRI, head, w/o contrast completed [facility] [address] [place], [address], 07/20/2024 19:09:34 Procedure Notes None recorded. Medical Equipment None Reported. Medications Name Sig Start Date Stop Date Status Note LastModified by Organization Details LastModified Time donepezil 10 mg tablet TAKE 1/2 TABLET (5 MG) AT BEDTIME X 2 WEEKS, THEN INCREASE TO 1 TABLET (10 MG) AT BEDTIME active Not Available Not Available No t Available metoprolol succinate ER 200 mg tablet,exten ded release 24 hr active Not Available Not Available Not Available famotidine 20 mg tablet active Not Available Not Available Not Available warfarin 5 mg tablet active Not Available Not Available No t Available lisinopril 30 mg tablet active Not Available Not Available Not Available Vitals Date Recorded Body weight Body mass index (BMI) Body height Respiratory rate Provider Name and Address Organization Details Last Updated DateTime 06/29/2024 76250.48 g 28.8 kg/m2 165.1 cm 18 /min Sandra Enriquez MD [address], [address] , [employer] 06/29/2024 11:12:40 Date Recorded Body height Oxygen saturation Oxygen saturation in Arterial blood by Pulse oximetry Heart rate Systolic blood pressure Diastolic blood pressure Provider Name and Address Organization Details Last Updated DateTime 165.1 cm 99 % 99 % 66 /min 140 mm[Hg] 70 mm[Hg] Taylor Galan [employer] 09:40:01 Social History None recorded. Functional Status None recorded. Mental Status None recorded. Family History Relationship Description Onset Age of this Age Resolved Age Notes LastModified by Organization Details LastModified Time Mother Malignant tumor of stomach Not available 2024 07:37:14 Father Cerebrovascu lar accident age 66 Not available 06/29/2024 07:37:29 Medical History No medical history recorded. Gynecological HistoryNo gynecological history recorded. Obstetrics History GPAL:G 0 P 0 0 0 0 Past Encounters Encounter ID Performer Location Encounter Start Date Encounter Closed Date Diagnosis/Indication Diagnosis SNOMED-CT Code Diagnosis ICD10 Code Diagnosis Note [id number] MD [facility] [address] [place] [address] 06/29/2024 11:09:40 06/29/2024 13:43:55 Parkinsonism 73440116 G20.C Unsteady when walking 22 064374 R26.89 [id number] MD Zoe Ro [facility] [address] [address] 08/11/2024 09:23:29 08/13/2024 12:15:47 Parkinsonism 16510202 G20.C Getting PT/OT through [facility] put in referral to Dr Robert [facility] Unsteady when walking 22 070380 R26.89 We put in a referral to Dr Kelley Neurologphill t per son request. Mild dementia [id number] [address] F03.A0 as above Dysarthria 7759211 R47.1 will put in [facility] order through [facility] how frustratin g this can beCan always ask Charley Linares who might be able to help, but time is limited. Goals Section Goal Description Progress Status Start Date LastModified by Organization Details LastModified Time Caregiver Education and/or Support Reports being supported in caregiver role None active 2024 Luh Calhoun Information not available 07/22/2024 20:14:59 Knowledge of Disease or Condition Demonstrates understanding of disease(s) or condition(s) None active 2024 Luh Calhoun Information not available 07/22/2024 20:14:59 Home/Envir onment Safety Reports having a safe environment that promotes independence and prevents injury None active 2024 Luh Calhoun Information not available 07/22/2024 20:14:59 Health Concerns Section Related Observation LastModified by Organization Detai ls LastModified Time None Recorded Concern Status LastModified by Organization Details LastModified Time Mild neurocognitive disorder Active Luh Calhoun Not Available 07/22/2024 20:1 2:10 Advance Directives Directive None Recorded Payers Encounter Date Sequence Insurance Name Policy Number Policy Silver Covered Member ID Silver Member ID Guarantor Name 06/29/2024 1 [place] [facility] Erika Trejo [id number] Erika Maya 06/29/2024 2 [facility] [facility] [id number] Erika Trejo [id number] Erika Maya 08/11/2024 1 [place] [facility] Erika Trejo [id number] Erika Tinewjenn 08/11/2024 2 [facility] [facility] [id number] Erika Judith Trejo [id number] Erika Maya Notes Date Note Type Note Provider Name and Address Organization Details Recorded Time text/html PCP: Dr Turner Referred by: PCP Person to contact for follow up visits: Yang Trejo, [address] [place] [address], Goals for visit: overall evaluation of current health Problems or specific concerns for this visit: vision, balance, memory PHQ9: 3 - moving slowlyGAD7: 0 - Patient history: Erika ramirez is pretty good right now. She has different things that she takes care. She gets on her regular meds.When asked when she last feel closer to 100%, around 5 years ago. Memory:She is having difficulty as far as remembering words in conversation, particular words. They will come back eventually but pt finds this frustrating.Started having a difficult time paying bills. No financial scams.Denies VH/AH/delusions, denies tremors but notes shuffling when she is walking.Feels like she is getting slower and more quiet. She used to be much louder.No urinary incontinence. Sense of smell and taste is fine she thinks.Not sure if she had a MRI of her brain - she doesnt think so. (no metal in her body)They did a CT scan of her brain at [facility] - no acute bleeds. No referral to Neurology as far as she knows. Mobility: started using walker about a year ago, when she fell.She falls forwards because she is going to go and do something (has trouble coming up with the words) . She falls bending over to get something.Son says today, getting into the car, it looked like she was going to fall to the side. She doesnt have a lifeline. PT came at the beginning and she was not that bad. Note had MOCA done by Dr Andi Iyer, [facility]. Score 21/30 with difficulty on takks measuring working memory and language fluency. When asked her med problems - slow to respond - afib... then looks to son for help with answers. Worries about bills - they are not getting paid - she doesnt have the time. Still has a mortgage on the house. Vision: it is kind of like, when she gets close to something, it gets all blurry, impossible to make out. Has been bad for about 2 months, has not been to the eye doctor. Family/caregiver history: Yang Started noticing things around 5 years ago in a gradual way but ramping up over the last 1-2 years.She was slurring her speech like she was drunk and getting a little wobbly - attributed it to her knees.He sees his mom very often and noticed these changes. She is very lethargic and slow - this is a big change - she used to fly around the house.She was always a very talkative person, would go to the senior center and play cards - and doesnt do that anymore. She was driving up to not too long ago - and he was getting concerned. She was the caregiver for her , he had hip surgery around the pandemic and now is not getting around the house. She is still making the meals which is getting very difficult for her. Their son is living with him as he has his own physical issues so he cant care for them. She spends time on her tablet, watches TV and Youtube videos. Vision - she had been squinting for a long time - a year or more. Gait - has been going on for a few years. Bills - she was always proud and obstinate about finances. She didnt want to talk about it.They have a small pension, SS, have enough to live on. He wants to know if there is something going on more than age related decline Recent ED visits/hospitalizations: yes fall and fractured collar bone Function:ADL: (bathing, dressing, toileting, transferring, continence, feeding)dressing and transfers are difficultIADL: ( Telephone, shopping, food preparation, housekeeping, laundry, Transportation, Medications, Finances)Help with paying bills, finances, shopping, difficult preparing food/housekeeping.can take meds on her own.Driving ?? - Not really, partly on account of her vision. She doesnt feel like it. Denies getting lost, no accidents.- Family has been helping with bills, says she is still cooking. Supports:Help at home: yesWho provides the care? family helpsWhat tasks do they help with? shopping, cleaning, appointmentsDo you provide care for a family member? no General information about you: Mobility:Assistive device: yesAny falls? yes - 3If yes, any injuries? yesAre you afraid of falling? yes Sleep:How would you describe your sleep? good (options: good, fair, poor)Do you snore? no (options: yes, no, don't know)Have you ever been tested for sleep apnea? no (yes, no, don't know) Nutrition:Appetite: goodHas food intake declined over the past 3 months? noWeight loss/gain: noWould you like assistance with meals? yes Finances: Any concerns? yes Health Maintenance:Overall health: fairDepression//sadness: noAnxiety:somewhat about billsMemory loss: yesAre you or others concerned about your memory?: yesFeels safe at home: yesHearing Test: noEye exam: noDentist: noHave you decreased the amt of time you spend with family/friends in the past year?: yes Physical fitness: no Frailty Screening:Fatigue: noResistance (able to climb a flight of stairs): yes - difficultAerobic (able to walk a block): noPresence of > 5 illnesses(HTN, DM, CA, chronic respiratorydisease, SD, CVA, arthritis (or RA), CKD, or liver disease): noWeight loss > 5% in the past 6 months: noScore: (Robust: 0, Pre-frail: 1-2, Frail: >=3) 1-2 Social History:[place] only childGood childhood, father was sick from the time she was 10 years old, she would help take care of himEducational level: 2 years college associatesLiving situation[facility], lives with , Stone [place], about 20 years.Sexual orientation: straightPartnership status: x 1, 1968, - Benja. His memory is better than hers.Occupation: retired, admin assist, [place]; not sure what year she left thereChildren: 2 Yang, Kyra & Neel, lives with herIn contact with them? yesETOH: used to drink but quit; was never a heavier drinkerConcern about amount of ETOH? n/aTobacco: noOther drugs: noSpare time - spents time talking, not doing anything. she liked to play cards Sandra Enriquez MD [address] [place] [address], [place], [phone], [facility] [employer] [facility] [employer] 06/29/2024 13:43:27 5 text/html Subjective: here with son Deshawn last visit: date: initial visit, 06.29.[address] Dukesived PT/OT/SW There are poeple coming in. She says she is getting OT but son says no, OT stopped.They are getting MOW - they are pretty good She says her son and and cat lives with her. is 83. He is getting some care. Walking is better with the walker. She wants to know what this is called (her condition). She knows this is dementia but it is not just dementia, there is some parkinsonism as well.Sometimes she has a hard time getting words out, it can be frustrating, she gets frustrated. She has an eye appt coming up August 24.Has some edema - her PCP is aware. Seems to be better. It is monitored by [facility]. Yang:She was doing PT alternating with OT as well as a nurse coming in.She was discharged from OT. They had a SW (Evelyn) in as well - they just saw her for the third time yesterday. Glimpse is coming in as well to do an assessment. They are going to work on a Medical Alert, getting help with finances, Medicare tax refunds.They are hoping to get some cleaning in.His brother is living there but is having some serious medical challenges as well but this is not meant to permanent. His dad had neuropathy and mobility issues. Stability and communication are ongoing issues. They would like [facility].They are in with Dr Kelley, Neurology, on September 07 - His dad is having a hard time coping with this and there can be arguments. He will say I dont know what you are saying, I dont know what you are talking about and it gets both worked up. His father needs some supports as well. Falls/change in gait: NoED visits/hospitalizations: NoChanges in function: getting PT/OT.Changes in medication: NoWas diagnosis from initial visit discussed?: Yes Sandra Enriquez MD [address] [place] [address], [place], [phone], [facility] 08/11/2024 10:38:16 OBGyn Episode No OBEpisode recorded.
== END 2024-09-07 09:08 | disposition home or self-care (01) ==
LOC: HO.HSMS 08:15
PROVIDERS: PCP Internal Medicine Geriatric Medicine; Referring Provider Internal Medicine Geriatric Medicine; Visit Provider Psychiatry & Neurology Neurology
DX: G31.84 Mild cognitive impairment of uncertain or unknown etiology (principal); R26.9 Unspecified abnormalities of gait and mobility
CPT/HCPCS: 99204; G2211

== ENCOUNTER 2024-09-07 08:14 | Outpatient (REF) | payer MEDICARE, SELFPAY ==
[2024-09-07 18:51] LABS: TSH reflex Free T4 1.02 uIU/mL (0.32-4.0)
[2024-09-07 19:06] LABS: Folate > 20.0 ng/mL (> or = 4.0); Vitamin B12 692 pg/mL (200-900)
== END 2024-09-07 08:15 | disposition home or self-care (01) ==
LOC: HO.HKASLDS 08:14
PROVIDERS: PCP Internal Medicine Geriatric Medicine; Referring Provider Internal Medicine Geriatric Medicine; Visit Provider Psychiatry & Neurology Neurology
DX: G31.84 Mild cognitive impairment of uncertain or unknown etiology (principal); R26.9 Unspecified abnormalities of gait and mobility
CPT/HCPCS: 36415; 82607; 82746; 84443; 99202

== ENCOUNTER 2024-12-07 10:09 | Outpatient (AMB) | payer MEDICARE, SELFPAY ==
[2024-12-07 10:24] VITALS: BP 110/70; PULSE 84; O2SAT 98; BMI 27.7
--- NOTE | 2024-12-07 10:24 | A.OFFVIS_ITS ---
Vital Signs 12/07/24 10:24 Height 5 ft 4 in Weight 161 lb 4 oz BMI 27.7 BP 110/70 Blood Pressure Location Rt brachial Position Sitting Pulse 84 Pulse Source Pulse Oximeter Pulse Oximetry (%) 98 Oxygen Delivery Method Room Air Intake Visit Reasons: 3 mo follow up Intake Note: Follow up care Foundry Metallurgist Required: No Accompanied by: Son Allergies adhesive tape Adverse Reaction (Intermediate, Verified 12/07/24 10:31) Rash erythromycin base Adverse Reaction (Intermediate, Verified 12/07/24 10:31) Diarrhea Penicillins Adverse Reaction (Intermediate, Verified 12/07/24 10:31) Diarrhea Medication List - Last Reconciled 12/07/24 by Jaqui Carpio MD carbidopa-levodopa 25-100 mg 1 tab PO TID donepezil 10 mg PO DAILY famotidine mg PO DAILY lisinopril 30 mg PO DAILY loratadine (Allergy Relief (loratadine)) 10 mg PO DAILY memantine 7 mg PO DAILY metoprolol succinate ER mg PO DAILY warfarin 5 mg PO DAILY HPI Comments Details: 79y/o Right Handed female comes for follow up of parkinsonisma nd cognitive impairment Amyloid scan was negative. she improved with carbidopa/levodopa and PT , speech therapy . she misses the second dose No falls but has near falls with walker. History from initial visit- 10/2024 with cognitive impairment comes for evaluation of gait and mobility issues ? parkinsons. she sees Dr Enriquez for her cognitive impairment. she scored 21/30 in her MOCA and is on donepezil.she is accompanied by her son who helps with history. In the past 2 years her family noticed slowing, gait difficulty , with falls. she has has worsened in the past year and she started using a walker recently and is doing better. Memory- word finding difficulty, wrong words, difficulty expressing sleep- no abnormal behavior Mood-mild depressed,gets upset when she cannot find words. not motivated speech-multiple paraphasias, expressive difficulties, softer speech, no drooling She has troubelw riting , using fork and knife, slower in dressing, slow in showering . Gait- uses a walker , smaller steps and cannot stop leading to falls. No tremors No dizziness No swallowing issues No hallucinations she has double vision in near sight. Bowel movements -good Urine- mild incontinence urgency Head injury- none [facility] Medical History Gait abnormality Mild cognitive impairment Complication of systemic hypertensive disorder Hypercoagulable state Afib GERD (gastroesophageal reflux disease) Osteoarthritis Benign paroxysmal positional vertigo Unsteady gait when walking Surgical History H/O total hysterectomy Family History Father CVA (cerebrovascular accident due to intracerebral hemorrhage) Social History Patient Tobacco Use Status: Never used Tobacco Current occupational status: unemployed and retired Physical Exam Vital Signs: Last Vital Signs Pulse 84 12/07/24 10:24 BP 110/70 12/07/24 10:24 Pulse Ox 98 12/07/24 10:24 Oxygen Delivery Method Room Air 12/07/24 10:24 BMI result Body Mass Index 27.7 Const General: cooperative, healthy appearing, comfortable and no acute distress Nutritional Appearance: overweight Eyes Pupils: Equal, round and reactive pupils present Neuro Other: moderate bradykinesia decreased facial expression , blink Hypophonia- mild No tremors Difficulty with tongue protrusion No cog wheel rigidity FFM and foot taps - decreased - mild Gait- without walker - very slow , small steps , stooped , with walker stride is better, normal base. Nystagmus - horizontal on romain lateral gaze and upgaze speech-dysarthria, word finding difficulty, mild hypophonia General: moves all extremities Cranial nerves: Yes Facial sensation intact/muscles of mastication intact, Yes Equal, round and reactive pupils present, Yes Normal facial strength present and Yes Midline tongue present Cognition (Neuro): abnormal cognition Motor exam (neuro): 5/5 motor strength present throughout Coordination: [id number] test normal Assessment & Plan Assessment & Plan (1) Mild cognitive impairment: Code(s): G31.84 - Mild cognitive impairment of uncertain or unknown etiology Category: Medical (2) Gait abnormality: Comment: ? parkinsonism Code(s): R26.9 - Unspecified abnormalities of gait and mobility Category: Medical Plan continue donepezil at 5 mg qd- assess diarhea and consider increase Increase carbidopa/levodopa 25/100 1 tab tid Trial memantine XR 7 mg qd Medications: New memantine 7 mg PO DAILY 30 ea 1RF Changed From carbidopa-levodopa 25-100 mg 1 tab PO BID 60 tabs 6RF To carbidopa-levodopa 25-100 mg 1 tab PO TID 90 tabs 6RF Coding Level of Care Code Est Pt Level 4 (52694) Complex EM visit Add On G2211 Diagnoses Mild cognitive impairment G31.84 Gait abnormality R26.9
--- OUTSIDE RECORDS SUMMARY | 2024-12-07 11:11 | XMS_ITS | Patient Health Record ---
Author Organization [facility] Address [address] [place] [address] Care Team Providers Care Medical Insurance Coder Name Role Phone Jermain Turner Primary Care Provider Bhanu Butts [phone] Allergies Allergen (clinical drug ingredient) Drug/Non Drug Allergy documented on EMR Reaction Allergy Type Onset Date Status Penicillin diarrhea Drug Allergy Active surgery tape (uncoded) Unknown Allergy Active Reason For Referral No Information Medications Medication SIG (Take, Route, Frequency, Duration) Notes Start Date End Date Status Stool Softener 100 MG 1 capsule as neede d Orally Once or twice a day Active Ranitidine 75 1 QD Active Metoprolol Tartrate 1 1 tablet with food Orally Twice a day Active Warfarin Sodium 5 MG 1 tablet Orally as directed Active Osteo Bi-Flex Regular Strength 1000 mg 1 tablet with a meal Orally Once a day Active Claritin 10 MG 1 tablet Orally Once a day Active Immunizations Vaccine Route Administration Date Status Comme nts Flu vaccine no Preserv 3 and > Unknown 12/27/2014 Admin istered Problems Problem Type SNOMED Code ICD Code Onset Dates Problem Status W/U Status Risk Notes Problem 691122184 Blood in stool (K92.1) Active confirmed Problem [id number] Constipation, unspecified constipation type (K59.00) Active confirmed Plan Of Treatment Future Test Test Name Order Date COLONOSCOPY 10/28/2015 Insurance Providers Payer Name Payer Address Payer Phone Subscriber Number Group Number Insured Name Patient Relationship to Insured Coverage Start Date Coverage End Date MEDICARE OF [place] [address] [place] [id number] ELENI NGUYEN Self - patient is the insured MEDEX ATTN CLAIMS [address] [place] [address] [id number] ANNELIESEGAURANGMICHELELindsay ELENI GABRIEL Self - patient is the insured Medical (General) History Medical History History ICD Code Hypertension Denies TX,DM,CVA,Lung disease,renal dise ase Afib Pancreatitis--due to a gallstone--at [facility] --had a [facility] Urinary incontinence Surgical History Surgery Date(Month/Year) hysterectomy for fibroids surgery for bladder suspension and recto tunde x2 cholecystectomy
--- OUTSIDE RECORDS SUMMARY | 2024-12-07 11:11 | XMS_ITS | Patient Health Record ---
[facility] Address [address] [place] [address] Care Team Providers Care Retail Delivery Driver Name Role Phone [facility] Baptiste [facility], [facility] Provi saray Unavailable Елнеа Sahni Unavailable [phone] Allergies Allergen (clinical drug ingredient) Drug/Non Drug [...] Calcium + D3 Active Famotidine 20 MG Oral; Duration: 90 Active Ciclopirox Olamine 0.77 % 1 application to affected area Externally to feet Twice a day; Duration: 30 days Active Lisinopril 20 MG Oral; Duration: 90 Active Loratadine 10 MG as directed Orally Active Metoprolol Succinate ER 100 MG Oral; Duration: 90 Active Warfarin Sodium 5 MG Oral; Duration: 90 Active Immunizations Vaccine Route Administration Date [...] Problem Status W/U Status Risk Notes Problem Localized, primary osteoarthritis of the ankle and/or foot (255349738) Osteoarthritis of right ankle and foot (M19.071) Active confirmed Plan Of Treatment Pending Test Test Name Order Date X ray : Foot, right 3V 04/25/2021 Insurance Providers Payer Name Payer Address Payer Phone Subscriber Number Group Number Insured Name Patient Relationship to Insured Coverage Start Date Coverage End Date Medicare National Govt [employer] [address] [place] [address] [id number] Erika Parker Self - patient is the insured [employer] Blue [employer] [address] [place] [address] [id number] Erika Parker Self - patient is the insured Medical (General) History Medical History History ICD Code Back,Hip,and Knee pain CAD (Cholesterol) Gall bladder Heart disease High blood pressure Reflux ( GERD) Sciatica Headaches/Migraines Chicken pox Surgical History Surgery Date(Month/Year) gall bladder hysterectomy labiaplasty
--- OUTSIDE RECORDS SUMMARY | 2024-12-07 11:11 | XMS_ITS | Clinical Summary ---
Author Organization [facility] Address [address] [place] [phone] Phone Care Team Providers Care Robotic Machine Operator Name Role Phone Jermain Lopez MD Primary Care Prov ider Cody Jenkins MD, PhD Unavailable Allergies Active Allergy Reactions Criticality Noted Date Comments Erythromycin 03/25/2017 Penicillin G Benzathin,Procain 03/25/2017 Adhesive Dermatitis 01/22/2018 Irritated skin, swollen, red Medications Ca idxc-R1-veaoph-i nos-silicon 300-200-37.5 mg-unit-mg Tab Activ e loratadine (CLARITIN) 10 mg tablet 1 tablet Active warfarin (COUMADIN) 5 MG tablet 5mg daily Fridays- 7.5 mg Active metoprolol succinate (TOPROL-XL) 100 MG 24 hr tablet Take 100 mg by mouth daily. Active famotidine (PEPCID) 20 MG tablet Take 20 mg by mouth daily. Active lisinopril (PRINIVIL,ZESTRI L) 20 MG tablet Take 30 mg by mouth daily. Active Active Problems Problem Noted Date Diagnosed Date Essential (primary) hypertension 03/23/2017 Assessment & Plan (07/29/2023 4:08 PM EDT): Mildly elevated in the office today 136/84 my check. Patient states her systolics are in the 120s when she gets her INRs checked regularly. Lisinopril was increased from 20 mg to 30 mg by PCP within the last year. She is also on metoprolol 100 mg daily. Recent metabolic panel through [facility] stable. Patient prefers to stay on current medications and doses and continue to monitor. Advised patient to follow-up in our office if BPs are generally >130/80. Permanent atrial fibrillation 03/23/2017 Overview (01/22/2018): Echo April 2016, normal ejection fraction, no significant valvular heart disease Assessment & Plan (07/29/2023 4:00 PM EDT): EKG in the office today shows atrial fibrillation. Patient remains adequately anticoagulated on warfarin without bleeding complaint and rate controlled on metoprolol, no ADRs to report. She remains asymptomatic in A-fib. We will see her back in 1 year. Pure hypercholesterolemia 03/23/2017 Assessment & Plan (07/29/2023 4:06 PM EDT): Patient is not on any cholesterol-lowering medications. I do not see a recent lipid panel with [facility] labs. Patient states that she believes she had this and will have them sent to us. Will follow-up sooner than 1 year if needed based on results. Immunizations Immunization Administration Dates Next Due COVID-19 (Pre-02/17) Moderna Vaccine, mRNA, PF 07/18/2020,06/20/2020 INFLUENZA, SPLIT VIRUS, TRIV ALENT W/ PRESERVATIVE IM 02/05/2012,02/14/2011,01/31/2010 Influenza High-Dose Quadriva lent Preservative Free IM 01/31/2020 Influenza Quadrivalent w/ Preservative IM 2018 Pneumococcal polysaccharide PPSV23 08/16/2010 Td (adult),2 Lf Tetanus Toxo id, PF, Adsorbed 11/26/2005,08/04/2000 Tdap 09/14/2012 Family History Medical History Relation Comments Cancer Mother 2 Relation Status Comments Mother 1 Mother 2 Social History Tobacco Use Types Packs/Day Years Used Date Smoking Tobacco: Never Smokeless Tobacco: Never Tobacco Cessation:Counseling Given: Not Answered Alcohol Use Standard Drinks/Week Comments Yes 0 (1 standard drink = 0.6 oz pur e alcohol) rarely Education Answer Date Recorded Are you interested in more education? Not on esthela e 08/22/2022 Are you concerned about learning? Not on file 08/22/2022 No 08/22/2022 No 08/22/2022 Digital Access Answer Date Recorded No 09/20/2022 No 09/20/2022 Reliable internet access at home? Not on file 09/20/2022 Device with a working camera? Not on file Comments Unknown Sex and Gender Information Value Date Recorded Sex Assigned at Not on file Legal Sex Female 10:08 PM EDT Gender Identity Not on file Sexual Orientation Not on file Last Filed Vital Signs Vital Sign Reading Time Taken Comments Blood Pressure 140/80 07/29/2023 3:24 PM EDT Pulse 90 07/29/2023 3:24 PM EDT Temperature - - Respiratory Rate - - Oxygen Saturation 97% 07/29/2023 3:24 PM EDT Inhaled Oxygen Concentration - - Weight 85.3 kg (188 lb) 07/29/2023 3:24 PM EDT Height 165 cm (5' 4.96 ) 07/29/2023 3:24 PM EDT Body Mass Index 31.32 07/29/2023 3:24 PM EDT Plan of Treatment Health Maintenance Due Date Last Done Comments CREATININE LEVEL 1945 LIPID PANEL 1945 POTASSIUM LEVEL 1945 DEPRESSION SCREENING 1957 HEPATITIS C SCREENING 1963 ZOSTER VACCINES (1 of 2) 1995 OSTEOPOROSIS SCREENING INITI AL (ONE-TIME) 2010 PNEUMOCOCCAL VACCINES (50+ years) (2 of 2 - PCV) 08/17/2011 08/16/2010 RSV VACCINE (1 - 1-dose 75+ series) 2020 Adult Td,Tdap Booster 09/14/2022 09/14/2012 , 11/26/2005, 08/04/2000 COVID-19 VACCINE ( - 2023-2 5 season) 2023 04/02/2021, 07/18/2020, 06/20/2020 BLOOD PRESSURE 01/28/2024 07/29/2023 SMOKING STATUS SCREENING (On ce After 26 Yrs) Completed 03/26/2022 HEPATITIS A VACCINES Aged Out No long er eligible based on patient's age to complete this topic HIB VACCINES Aged Out No longer eligi ble based on patient's age to complete this topic MENINGOCOCCAL VACCINES (ACWY) Aged Out No longer eligible based on patient's age to complete this topic MENINGOCOCCAL VACCINES (B) Aged Out N o longer eligible based on patient's age to complete this topic Medical Devices Not on file Insurance MEDICARE PART A & B [facility] MEDEX SUPPLEMENT MEDICARE PART A & B [employer] SUPPLEMENT MEDICARE PART A & B [employer] SUPPLEMENT MEDICARE PART A & B [employer] SUPPLEMENT MEDICARE PART A & B GL 2ours MEDEX SUPPLEMENT MEDICARE PART A & B GL 2ours MEDEX SUPPLEMENT MEDICARE PART A & B GL 2ours MEDEX SUPPLEMENT MEDICARE PART A & B [facility] MEDEX SUPPLEMENT MEDIC[place] PART A & [place] [id number] [employer] MEDEX SUPPLEMENT Care Teams Robotic Machine Operator Relationship Specialty Start Date End Date Jermain Lopez MD [email or web address] PCP - General 02/13/17 Cody Jenkins MD, PhD [address] [place] [id number] [email or web address] Consulting Provider Hematology 03/15/21 Additional Source Comments The information contained in this document represents components of the legal health record. It is not the complete legal health record.[facility]
== END 2024-12-07 11:16 | disposition home or self-care (01) ==
LOC: HO.HSMS 10:10
PROVIDERS: PCP Internal Medicine Geriatric Medicine; Visit Provider Psychiatry & Neurology Neurology
DX: G31.84 Mild cognitive impairment of uncertain or unknown etiology (principal); R26.9 Unspecified abnormalities of gait and mobility
CPT/HCPCS: 99214; G2211

== ENCOUNTER → 2024-12-07 10:09 | Outpatient (BNVA) | payer MEDICARE, SELFPAY | PROVIDERS: PCP Internal Medicine Geriatric Medicine; Visit Provider Psychiatry & Neurology Neurology | DX: G31.84 Mild cognitive impairment of uncertain or unknown etiology (principal); R26.9 Unspecified abnormalities of gait and mobility; Z79.899 Other long term (current) drug therapy | CPT/HCPCS: 99212 ==

== ENCOUNTER 2025-04-13 10:28 | Outpatient (AMB) | payer MEDICARE, SELFPAY ==
--- NOTE | 2025-04-13 10:29 | A.OFFVIS_ITS ---
Vital Signs 04/13/25 10:30 Height 5 ft 4 in Weight 161 lb 2 oz BMI 27.7 BP 112/74 Blood Pressure Location Rt brachial Position Sitting Pulse 90 Pulse Source Pulse Oximeter Pulse Oximetry (%) 96 Oxygen Delivery Method Room Air Intake Visit Reasons: 4mnth follow up Intake Note: Follow up Mild cognitive impairment and gait abnormality Juice Packaging Machines Setter Required: No Accompanied by: Son Allergies adhesive tape Adverse Reaction (Intermediate, Verified 04/13/25 10:30) Rash erythromycin base Adverse Reaction (Intermediate, Verified 04/13/25 10:30) Diarrhea Penicillins Adverse Reaction (Intermediate, Verified 04/13/25 10:30) Diarrhea Medication List - Last Reconciled 04/13/25 by Jaqui Carpio MD carbidopa-levodopa 25-100 mg 1 tab PO TID donepezil 10 mg PO DAILY famotidine mg PO DAILY lisinopril 30 mg PO DAILY loratadine (Allergy Relief (loratadine)) 10 mg PO DAILY memantine 14 mg PO DAILY metoprolol succinate ER mg PO DAILY warfarin 5 mg PO DAILY HPI Comments Details: 79y/o Right Handed female comes for follow up of parkinsonism and cognitive impairment Amyloid scan was negative. she improved with carbidopa/levodopa and PT , speech therapy . she reports some dysphagia she had 1 fall when she tried to bend down to pear picker something form the floor. No dizziness or hallucinations. History from initial visit- 10/2024 with cognitive impairment comes for evaluation of gait and mobility issues ? parkinsons. she sees Dr Enriquez for her cognitive impairment. she scored 21/30 in her MOCA and is on donepezil.she is accompanied by her son who helps with history. In the past 2 years her family noticed slowing, gait difficulty , with falls. she has has worsened in the past year and she started using a walker recently and is doing better. Memory- word finding difficulty, wrong words, difficulty expressing sleep- no abnormal behavior Mood-mild depressed,gets upset when she cannot find words. not motivated speech-multiple paraphasias, expressive difficulties, softer speech, no drooling She has troubelw riting , using fork and knife, slower in dressing, slow in showering . Gait- uses a walker , smaller steps and cannot stop leading to falls. No tremors No dizziness No swallowing issues No hallucinations she has double vision in near sight. Bowel movements -good Urine- mild incontinence urgency Head injury- none PFSH Medical History Gait abnormality Mild cognitive impairment Complication of systemic hypertensive disorder Hypercoagulable state Afib GERD (gastroesophageal reflux disease) Osteoarthritis Benign paroxysmal positional vertigo Unsteady gait when walking Surgical History H/O total hysterectomy Family History Father CVA (cerebrovascular accident due to intracerebral hemorrhage) Social History Patient Tobacco Use Status: Never used Tobacco Current occupational status: unemployed and retired Physical Exam Vital Signs: Last Vital Signs Pulse 90 04/13/25 10:30 BP 112/74 04/13/25 10:30 Pulse Ox 96 04/13/25 10:30 Oxygen Delivery Method Room Air 04/13/25 10:30 BMI result Body Mass Index 27.7 Const General: cooperative, healthy appearing, comfortable and no acute distress Nutritional Appearance: overweight Eyes Pupils: Equal, round and reactive pupils present Neuro Other: moderate bradykinesia decreased facial expression , blink Hypophonia- mild No tremors Difficulty with tongue protrusion No cog wheel rigidity FFM and foot taps - decreased - mild Gait- with walker - very slow , small steps , stooped , with walker stride is better, normal base. Nystagmus - horizontal on romain lateral gaze and upgaze speech-dysarthria, word finding difficulty, mild hypophonia Cranial nerves: Yes Facial sensation intact/muscles of mastication intact, Yes Equal, round and reactive pupils present, Yes Normal facial strength present and Yes Midline tongue present Cognition (Neuro): abnormal cognition Motor exam (neuro): 5/5 motor strength present throughout Coordination: [id number] test normal Assessment & Plan Assessment & Plan (1) Mild cognitive impairment: Code(s): G31.84 - Mild cognitive impairment of uncertain or unknown etiology Category: Medical (2) Gait abnormality: Comment: ? parkinsonism Code(s): R26.9 - Unspecified abnormalities of gait and mobility Category: Medical Plan continue donepezil at 5 mg qd- assess diarhea and consider increase Increase Carbidopa/levodopa 25/100 1 1/2tab tid Titrate memantine XR to 21 mg and and then 28 mg Barium swallow for dysphagia eval Orders: Orders FL Modified Barium Swallow Today R13.10 - Dysphagia, unspecified, R26.9 - Unspecified abnormalities of gait and mobility Medications: New memantine after 30 day course of 21mg 28 mg PO DAILY 30 ea 6RF donepezil 5 mg PO DAILY 30 tabs 6RF Changed From memantine 14 mg PO DAILY 90 caps 1RF G31.84 - Mild cognitive impairment of uncertain or unknown etiology To memantine 21 mg PO DAILY 30 caps 0RF G31.84 - Mild cognitive impairment of uncertain or unknown etiology From carbidopa-levodopa 25-100 mg 1 tab PO TID 90 tabs 6RF To carbidopa-levodopa 25-100 mg 1.5 tabs PO TID 150 tabs 6RF Refilled carbidopa-levodopa 25-100 mg 1 tab PO TID 90 tabs 6RF Coding Level of Care Code Est Pt Level 4 (93172) Add On Problem Visit Only Diagnoses Mild cognitive impairment G31.84 Gait abnormality R26.9
[2025-04-13 10:30] VITALS: BP 112/74; PULSE 90; O2SAT 96; BMI 27.7
--- OUTSIDE RECORDS SUMMARY | 2025-04-13 13:03 | XMS_ITS | Patient Health Record ---
Author Organization [facility] Address [address] [place] [address] Care Team Providers Care Fur Operator Name Role Phone Jermain Turner Primary Care Provider Bhanu Butts [phone] Allergies Allergen (clinical drug ingredient) Drug/Non Drug Allergy documented on EMR Reaction Allergy Type Onset Date Status surgery tape (uncoded) Unknown Allergy Active Penicillin diarrhea Drug Allergy Active Reason For Referral No Information Medications Medication SIG (Take, Route, Frequency, Duration) Notes Start Date End Date Status Stool Softener 100 MG Capsule 1 capsule as needed Orally Once or twice a day Active Ranitidine 75 1 QD Active Metoprolol Tartrate 1 Tablet 1 tablet with food Orally Twice a day Active Warfarin Sodium 5 MG Tablet 1 tablet Orally as directed Active Osteo Bi-Flex Regular Strength 1000 mg Tablet 1 tablet with a meal Orally Once a day Active Claritin 10 MG Tablet 1 tablet Orally Once a day Active Immunizations Vaccine Route Administration Date Status Comme nts Flu vaccine no Preserv 3 and > Unknown 12/27/2014 Admin istered Social History Social History Additional Details Category Social Info Options Details Miscellaneous: Marital status: Occupation: Retired Section Notes: Nonsmoker; no sig alcohol Problems Problem Type SNOMED Code ICD Code Onset Dates Problem Status W/U Status Risk Notes Problem Blood in stool (303064888) Blood in stool (K92.1) Active confirmed Problem Constipation (92515038) Constipation, unspecified constipation type (K59.00) Active confirmed Plan Of Treatment Future Test Test Name Order Date COLONOSCOPY 10/28/2015 Insurance Providers Payer Name Payer Address Payer Phone Subscriber Number Group Number Insured Name Patient Relationship to Insured Coverage Start Date Coverage End Date MEDICARE OF [place] [address] RUSSELL OGDEN [id number] ELENI NGUYEN Self - patient is the insured MEDEX ATTN CLAIMS [address] [place] [address] [id number] ELENI NGUYEN Self - patient is the insured Medical (General) History Medical History History ICD Code Hypertension Denies ND,DM,CVA,Lung disease,renal dise ase Afib Pancreatitis--due to a gallstone--at [facility] --had a [facility]Y Urinary incontinence Surgical History Surgery Date(Month/Year) hysterectomy for fibroids surgery for bladder suspension and recto tunde x2 cholecystectomy
--- OUTSIDE RECORDS SUMMARY | 2025-04-13 13:03 | XMS_ITS | Clinical Summary ---
Author Organization [facility] Address [address] [place] [address] Phone Care Team Providers Care Customer Marketing Assistant Name Role Phone Jermain Lopez MD Primary Care Prov ider Cody Jenkins MD, PhD Unavailable Allergies Active Allergy Reactions Criticality Noted Date Comments Erythromycin 03/25/2017 Latex Rash Low 04/01/2025 Penicillin G Benzathin,Procain 03/25/2017 Penicillins Diarrhea 04/01/2025 Other Reaction(s): GI REACTION Adhesive Dermatitis 01/22/2018 Irritated skin, swollen, red Medications Ca [id number]-[id number] -inos-silicon 300-200-37.5 mg-unit-mg Tab Activ e loratadine (CLARITIN) 10 mg tablet 1 tablet Active warfarin (COUMADIN) 5 MG tablet 5mg daily Fridays- 7.5 mg Active metoprolol succinate (TOPROL-XL) 100 MG 24 hr tablet Take 100 mg by mouth daily. Active famotidine (PEPCID) 20 MG tablet Take 20 mg by mouth daily. Active lisinopril (PRINIVIL,ZEST RIL) 20 MG tablet Take 30 mg by mouth daily. Active carbidopa-levo dopa (SINEMET) 25-100 mg per tablet Take 1 tablet by mouth 3 (three) times a day. Active memantine (NAMENDA XR) 14 mg 24 hr sprinkle capsule Take 14 mg by mouth daily. Active donepeziL (ARICEPT) 10 MG tablet Take 10 mg by mouth daily. 5 Active ciclopirox (CICLODAN) 0.77 % cream 1 application to affected area Externally to feet Twice a day for 30 days Active memantine (NAMENDA XR) 7 mg 24 hr sprinkle capsule PLEASE SEE ATTACHED FOR DETAILED DIRECTIONS 5 04/01/20 25 Discontin ued(No longer taking) Active Problems Problem Noted Date Diagnosed Date Essential (primary) hypertension 03/23/2017 Assessment & Plan (04/01/2025 4:38 PM EST): BP is under good control with lisinoprol. She is tolerating this medication well. Will continue current management. Plan: Continue lisinopril Assessment & Plan (07/29/2023 4:08 PM EDT): Mildly elevated in the office today 136/84 my check. Patient states her systolics are in the 120s when she gets her INRs checked regularly. Lisinopril was increased from 20 mg to 30 mg by PCP within the last year. She is also on metoprolol 100 mg daily. Recent metabolic panel through [facility]. Patient prefers to stay on current medications and doses and continue to monitor. Advised patient to follow-up in our office if BPs are generally >130/80. Permanent atrial fibrillation 03/23/2017 Overview (01/22/2018): Echo April 2016, normal ejection fraction, no significant valvular heart disease Assessment & Plan (04/01/2025 4:41 PM EST): Pt is currently rate controlled with metoprolol and on warfarin for CVA prophylaxis. Pt is tolerating these medications well. Pt has had recurrent falls due to her recent dementia diagnosis. We discussed continued use of warfarin. We discussed the risks versus benefits of continuing warfarin. We also discussed potential Watchman implantation. Pt is not interested in pursuing Watchman at this time but she is given information to take home and review. She would like to continue warfarin for now. We discussed the potential for discontinuing warfarin at some point given her recurrent falls. Pt to follow-up in one year or sooner if necessary. Plan: Continue metoprolol Continue warfarin Follow-up in 1 yr Assessment & Plan (07/29/2023 4:00 PM EDT): [...] not see a recent lipid panel with [facility]. Patient states that she believes she had this and will have them sent to us. Will follow-up sooner than 1 year if needed based on results. Encounters Date Type Department Care Team Description 04/01/2025 4:00 PM EST Office Visit [facility] [address], [address] [place], [place] [id number] Deedee Antony DNP Essential (primary) hypertension (Primary Dx); Permanent atrial fibrillation from Last 3 Months Immunizations Immunization Administration Dates Next Due COVID-19 [...] Sign Reading Time Taken Comments Blood Pressure 130/80 04/01/2025 3:45 PM EST Pulse 100 04/01/2025 3:45 PM EST Temperature - - Respiratory Rate - - Oxygen Saturation 98% 04/01/2025 3:45 PM EST Inhaled Oxygen Concentration - - Weight 85.3 kg (188 lb) 07/29/2023 3:24 PM EDT Height 165 cm (5' 4.96 ) 04/01/2025 3:45 PM EST Body Mass Index 31.32 07/29/2023 3:24 PM EDT Plan of Treatment Upcoming Encounters Date Type Department Care Team (Late st Contact Info) Description 04/03/2026 2:40 PM EST Office Visit [facility] [address] [place] [address] 3rd Floor, [address] [place], [place] [phone] Bharathi Palma MD [address] [place] [address], [address] [place] [address] [email or web address] Health Maintenance Due Date Last Done Comments CREATININE LEVEL 1945 LIPID PANEL 1945 POTASSIUM LEVEL 1945 DEPRESSION SCREENING 1957 HEPATITIS C SCREENING 1963 ZOSTER VACCINES (1 of 2) 1995 OSTEOPOROSIS SCREENING INITIAL (ONE-TIME) 2010 PNEUMOCOCCAL VACCINES (50+ years) (2 of 2 - PCV) 08/17/2011 08/16/2010 RSV VACCINE (1 - 1-dose 75+ series) 2020 Adult Td,Tdap Booster 09/14/2022 09/14/2012 , 11/26/2005, 08/04/2000 INFLUENZA VACCINE (#1) 2024 , 02/08/2019, 02/05/2012, Additional history exists COVID-19 VACCINE (2024- season) 2024 04/02/2021, 07/18/2020, 06/20/2020 BLOOD PRESSURE 09/30/2025 04/01/2025 SMOKING STATUS SCREENING (Once After 26 Yrs) Completed 03/26/2022 HEPATITIS A [...] file Insurance MEDICARE PART A & B [employer]TE[employer]OSS MEDEX SUPPLEMENT [facility] PART A & B [facility] MEDEX SUPPLEMENT [facility] MED[facility] A & B [employer] MEDEX SUPPLEMENT MEDICARE PART A & B [employer] MEDEX SUPPLEMENT MEDICARE PART A & B [employer] MEDEX SUPPLEMENT [facility] MEDICARE PART A & B [employer] MEDEX SUPPLEMENT MEDICARE PART A & B [employer] MEDEX SUPPLEMENT Member Subscriber Plan / Payer (Ef fective 2010-Present) Name:RinaRickie montielille Relation to Subscriber:Self Name:ANNELIESEGAURANGERIKA MONTIEL Payer ID:[id number] (NAIC) Type:Indemnity Address: [address] MEDICARE PART A & B [employer] MEDEX SUPPLEMENT [facility] MEDICARE PART A & B [employer] MEDEX SUPPLEMENT [facility] Care Teams Customer Marketing Assistant Relationship Specialty Start Date End Date Jermain Lopez MD PCP - General 02/13/17 Cody Jenkins MD, PhD [address] [address] [email or web address] Consulting Provider Hematology 03/15/21 Additional Source Comments The information contained in this document represents components of the legal health record. It is not the complete legal health record.[facility]
--- OUTSIDE RECORDS SUMMARY | 2025-04-13 13:03 | XMS_ITS | Encounter Summary ---
Author Organization [facility] Address [address] [place] [address] Phone Care Team Providers Care Injection Mold Technician Name Role Phone Jermain Lopez MD Primary Care Prov ider Cody Jenkins MD, PhD Unavailable [phone] Encounter Details Date Type Department Care Team (Late st Contact Info) Description 06/29/2024 Procedure Pass [facility], [address] [address] Social History Tobacco Use Types Packs/Day Years Used Date Smoking Tobacco: Never Smokeless Tobacco: Never Alcohol Use Standard Drinks/Week Comments Yes 0 [...] on file Sexual Orientation Not on file documented as of this encounter Plan of Treatment Upcoming Encounters Date Type Department Care Team (Late st Contact Info) Description 04/03/2026 2:40 PM EST Office Visit [facility] [address] [facility] 3rd Floor, [address] [place] [address] Bharathi Palma MD [address] [facility], [address] [place] [address] [email or web address] documented as of this encounter Visit Diagnoses Not on filedocumented in this encounter Care Teams Injection Mold Technician Relationship Specialty Start Date End Date Jermain Lopez MD [email or web address] PCP - General 02/13/17 Cody Jenkins MD, PhD [address] [address] [email or web address] Consulting Provider Hematology 03/15/21 documented as of this encounter Additional Source Comments The information contained in this document represents components of the legal health record. It is not the complete legal health record.[facility]
--- OUTSIDE RECORDS SUMMARY | 2025-04-13 13:03 | XMS_ITS | Encounter Summary ---
Author Organization [facility] Address [address] [place] [address] Phone Care Team Providers Care Cement Finishing Supervisor Name Role Phone Jermain Lopez MD Primary Care Prov ider Cody Jenkins MD, PhD Unavailable [phone] Reason for Referral * MRI/CAT Scan - Closed Specialty Diagnoses / Procedures Referred By Kimberly singh Referred To Contact Radiology Diagnoses Parkinsonism, unspecified Parkinsonism type Procedures MRI Brain Sandra Enriquez MD Phone: tel: fax: [email or web address] Referral ID Status Reason Start Date Expiration Date Visits Re quested Visits Authorized [id number] Closed 06/29/2024 06/29/2025 1 1 Encounter Details Date Type Department Care Team (Latest Contact Info) Description 06/29/2024 Transcribe Orders Virtual Department [address] [place] [address] Sandra Enriquez MD [address] [facility] [address] [place] [address] [email or web address] Parkinsonism, unspecified Parkinsonism type (Primary Dx) Social History Tobacco Use Types Packs/Day Years [...] Description 04/03/2026 2:40 PM EST Office Visit [facility] [address] [place] [address] [address]rd Floor, [address] [place] [address] Bharathi Palma MD [address] [place] [address], [address] [address] documented as of this encounter Results * MRI BRAIN WITHOUT CONTRAST (07/15/2024 12:30 PM EDT) Anatomical Region Laterality Modality Head Magnetic Resonan ce 07/19/2024 4:15 PM EDT Impressions 07/19/2024 4:28 PM EDT 1. No acute intracranial infarction, hemorrhage or mass-effect. 2. Mild areas of T2 hyperintensities in the white matter, nonspecific, likely chronic small vessel disease. Narrative 07/19/2024 4:28 PM EDT MRI BRAIN WITHOUT CONTRAST Referring clinician's provided indication for this examination in [facility]: Outside Radiology Order; parkinsonism TECHNIQUE: MRI BRAIN WITHOUT CONTRAST Multi-sequence, multi-planar MRI of the brain was performed without intravenous contrast. COMPARISON: None FINDINGS: Brain Parenchyma: No evidence of acute infarct, mass or hemorrhage. There are scattered foci of T2 hyperintensity in the white matter, likely a manifestation of chronic small vessel disease. Cortical and subcortical T2 hyperintensity in the LEFT frontal operculum, likely sequela of the prior trauma or remote ischemia. Ventricular System and Extra-Axial Spaces: The ventricles and cortical sulci are prominent, as commonly seen in patients of this age. No evidence of midline shift or hydrocephalus. Extracranial Structures: Expected arterial flow signal is observed at the skull base. Procedure Note Max Solorio MD, PhD - 07/19/2024 MRI BRAIN WITHOUT CONTRAST Referring clinician's provided indication for this examination in Epic:Outside Radiology Order; parkinsonism TECHNIQUE: MRI BRAIN WITHOUT CONTRAST Multi-sequence, multi-planar MRI of the brain was performed withoutintravenous contrast. COMPARISON: None FINDINGS: Brain Parenchyma: No evidence of acute infarct, mass or hemorrhage. Thereare scattered foci of T2 hyperintensity in the white matter, likely amanifestation of chronic small vessel disease. Cortical and subcortical [id number] in the LEFT frontal operculum, likely sequela of the priortrauma or remote ischemia. Ventricular System and Extra-Axial Spaces: The ventricles and corticalsulci are prominent, as commonly seen in patients of this age. No evidenceof midline shift or hydrocephalus. Extracranial Structures: Expected arterial flow signal is observed at theskull base. IMPRESSION: 1. No acute intracranial infarction, hemorrhage or mass-effect. 2. Mild areas of T2 hyperintensities in the white matter, nonspecific,likely chronic small vessel disease. Sandra Enriquez MD IMG MR HEAD/NECK Final Result documented in this encounter Visit Diagnoses Diagnosis Parkinsonism, unspecified Parkinsonism type- Primary Parkinsonism, unspecified Parkinsonism type documented in this encounter Care Teams Cement Finishing Supervisor Relationship Specialty Start Date End Date Jermain Lopez MD PCP - General 02/13/17 Cody Jenkins MD, PhD [address] [place] [id number] [email or web address] Consulting Provider Hematology 03/15/21 documented as of this encounter Additional Source Comments The information contained in this document represents components of the legal health record. It is not the complete legal health record.[facility]
--- OUTSIDE RECORDS SUMMARY | 2025-04-13 13:03 | XMS_ITS | Patient Health Record ---
Author [facility] Address [address] [place] [address] Care Team Providers Care Rat Trapper Name Role Phone [facility] Baptiste MD, [facility] Provi saray Unavailable Елена Sahni Unavailable [phone] Allergies Allergen (clinical drug ingredient) Drug/Non Drug [...] primary osteoarthritis of the ankle and/or foot (365329007) Osteoarthritis of right ankle and foot (M19.071) Active confirmed Plan Of Treatment Pending Test Test Name Order Date X ray : Foot, right 3V 04/25/2021 Insurance Providers Payer Name Payer Address Payer Phone Subscriber Number Group Number Insured Name Patient Relationship to Insured Coverage Start Date Coverage End Date Medicare National Govt [employer] [address] [place] [address] [id number] Erika Parker Self - patient is the insured [employer] Blue [employer] [address] [place] [address] [id number] Erika Parker Self - patient is the insured Medical (General) History Medical History History ICD Code Back,Hip,and Knee pain CAD (Cholesterol) Gall bladder Heart disease High blood pressure Reflux ( GERD) Sciatica Headaches/Migraines Chicken pox Surgical History Surgery Date(Month/Year) gall bladder hysterectomy labiaplasty
== END 2025-04-13 11:04 | disposition home or self-care (01) ==
LOC: HO.HSMS 10:29
PROVIDERS: PCP Internal Medicine Geriatric Medicine; Visit Provider Psychiatry & Neurology Neurology
DX: G31.84 Mild cognitive impairment of uncertain or unknown etiology (principal); R26.9 Unspecified abnormalities of gait and mobility
CPT/HCPCS: 99214; G2211

== ENCOUNTER → 2025-04-13 10:28 | Outpatient (BNVA) | payer MEDICARE, SELFPAY | PROVIDERS: PCP Internal Medicine Geriatric Medicine; Visit Provider Psychiatry & Neurology Neurology | DX: G31.84 Mild cognitive impairment of uncertain or unknown etiology (principal); R26.9 Unspecified abnormalities of gait and mobility | CPT/HCPCS: 99212 ==

== ENCOUNTER 2025-04-17 16:56 | Emergency (ER) | payer MEDICARE, SELFPAY ==
--- NOTE | ~2025-04-17 | CT_ITS ---
CLINICAL HISTORY: fall, ?head strike, on AC CT head without contrast Comparison: CT/SR - CT HEAD/BRAIN WO IV CON - 05/08/24 07:55 EST Findings: No intra-axial mass, midline shift, hydrocephalus, or acute hemorrhage. Diffuse volume loss. Periventricular and subcortical white matter hypoattenuation likely chronic small-vessel ischemic changes. Intracranial atherosclerosis. The visualized paranasal sinuses and mastoid air cells are normal. The orbits are within normal limits. There is no acute fracture. IMPRESSION: 1. No acute intracranial findings. This document has been electronically signed by: Lesley Payne MD on 04/17/2025 19:15:12
--- NOTE | ~2025-04-17 | XR_ITS ---
CLINICAL HISTORY: Fall 4 view, chest and bilateral ribs Comparison: None provided Findings: Bones intact. No dislocations. The lungs are unremarkable. IMPRESSION: 1. No acute fractures. This document has been electronically signed by: Lesley Payne MD on 04/17/2025 18:58:54
--- NOTE | ~2025-04-17 | XR_ITS ---
CLINICAL HISTORY: Fall 3 views lumbar spine Comparison: None provided Findings: Grade 1 anterolisthesis of L3 on L4 and L4 on L5. No acute fractures or dislocation. Degenerative disc disease at L4-L5 and L5-S1 with facet arthropathy from L3-L4 through L5-S1. Aortic atherosclerosis. IMPRESSION: No acute findings. This document has been electronically signed by: Lesley Payne MD on 04/17/2025 18:59:39
--- NOTE | ~2025-04-17 | XR_ITS ---
CLINICAL HISTORY: Fall 3 view, pelvis and bilateral hips Comparison: None provided Findings: No acute fracture or dislocation. No significant arthritic change of the hips. The soft tissues are unremarkable. IMPRESSION: No acute findings. This document has been electronically signed by: Lesley Pyane MD on 04/17/2025 19:01:27
--- NOTE | ~2025-04-17 | CT_ITS ---
CLINICAL HISTORY: fall, ?head strike, on AC CT cervical spine without contrast Comparison: None provided Findings: Vertebral alignment is within normal limits. Mild multilevel degenerative changes. No acute fractures or dislocations. No acute findings on limited view of the intracranial contents. No cervical fluid collections or masses. Lung apices are clear. IMPRESSION: No acute findings. This document has been electronically signed by: Lesley Payne MD on 04/17/2025 19:14:28
--- NOTE | 2025-04-17 17:01 | ED.FALL ---
HPI - Fall General Chief Complaint: Fall Stated Complaint: Fall few days ago unable to sleep body discomfort Time Seen by Provider: 04/17/25 17:13 Source: patient and family Mode of arrival: wheelchair Limitations: no limitations History of Present Illness ED Provider: Peggy Elaine APRN HPI Narrative: 79 yo female with history of afib on coumadin, cognitive impairment, parkinsons, GERD, HTN Presents to the ER with complaints of lower back pain after a fall which occurred on Friday. Patient reports she was with her walker and she lost her balance falling backwards hitting her back on the first coat sander. She is unsure if she actually fell to the ground. She does not believe that she hit her head. There was no loss of consciousness. Pain has been gradually getting worse since then. Her last dose of Tylenol was today at 07:00. She denies any headache, neck pain, back pain, chest pain, shortness of breath, abdominal pain, weakness /numbness / tingling of lower upper extremities, vision changes or vomiting. Related Data Home Medications ?Medication ?Instructions ?Recorded ?Confirmed famotidine 20 mg tablet mg PO DAILY 05/26/24 04/13/25 lisinopril 30 mg tablet 30 mg PO DAILY 05/26/24 04/13/25 loratadine 10 mg tablet (Allergy 10 mg PO DAILY 05/26/24 04/13/25 Relief (loratadine)) metoprolol succinate 200 mg mg PO DAILY 05/26/24 04/13/25 tablet,extended release 24 hr warfarin 5 mg tablet 5 mg PO DAILY 05/26/24 04/13/25 Previous Rx's ?Medication ?Instructions ?Recorded carbidopa 25 mg-levodopa 100 mg 1.5 tab PO TID #150 tabs 04/13/25 tablet donepezil 5 mg tablet 5 mg PO DAILY #30 tabs 04/13/25 memantine 21 mg capsule 21 mg PO DAILY #30 caps 04/13/25 sprinkle,extended release 24hr memantine 28 mg capsule 28 mg PO DAILY #30 ea 04/13/25 sprinkle,extended release 24hr cyclobenzaprine 5 mg tablet 5 mg PO TID PRN muscle spasm #12 04/17/25 tabs lidocaine 5 % topical patch 1 patch topical DAILY #15 ea 04/17/25 (Lidoderm) Allergies Allergy/AdvReac Type Severity Reaction Status Date / Time adhesive tape AdvReac Intermediate Rash Verified 04/17/25 17:07 erythromycin base AdvReac Intermediate Diarrhea Verified 04/17/25 17:07 Penicillins AdvReac Intermediate Diarrhea Verified 04/17/25 17:07 Review of Systems Review of Systems: Yes all other systems are reviewed and are negative Constitutional: Constitutional: Reports no additional constitutional complaints, Denies body ache(s), Denies chills, Denies fever(s), Denies headache(s) and Denies weakness Eyes: Eyes: Reports no additional eye complaints and Denies change in vision ENT: Reports system reviewed and no additional complaints, except as documented, Denies dizziness, Denies headache(s), Denies nasal congestion, Denies nasal discharge and Denies neck pain Cardiovascular: Cardiovascular: Reports no additional cardiovascular complaints, Denies chest pain, Denies leg edema and Denies dyspnea Respiratory: Respiratory: Reports no additional respiratory complaints, Denies cough and Denies dyspnea Gastrointestinal: Gastrointestinal: Reports no additional gastrointestinal complaints, Denies abdominal pain, Denies diarrhea, Denies nausea and Denies vomiting Genitourinary: Genitourinary: Reports no additional female genitourinary complaints and Denies urinary incontinence Musculoskeletal: Musculoskeletal: Reports no additional musculoskeletal complaints, Reports back pain, Denies arthralgias, Denies joint swelling, Denies neck pain, Denies numbness and Denies tingling Integumentary/Breasts: Skin/Breast: Reports system reviewed and no additional complaints, except as docu and Denies rash Neurologic: Reports system reviewed and no additional complaints, except as documented, Denies Abnormal speech present, Denies dizziness, Denies headache(s), Denies numbness, Denies tingling and Denies weakness [facility] Past Medical History Attestation statement: The following information was validated with the patient. Source: old records reviewed and nursing notes reviewed Medical History Gait abnormality Mild cognitive impairment Complication of systemic hypertensive disorder Hypercoagulable state Afib GERD (gastroesophageal reflux disease) Osteoarthritis Benign paroxysmal positional vertigo Unsteady gait when walking Surgical History H/O total hysterectomy Family History Family History Father CVA (cerebrovascular accident due to intracerebral hemorrhage) Social History Social History Patient Tobacco Use Status: Never used Tobacco Smoked in Last 30 Days: No Use of substances other than those prescribed or required for medical reasons: No Advance Directives: No Advance Directives Information Provided: No Do you have a plan to hurt others: No Plan Current occupational status: unemployed and retired Physical Exam Vital Signs: Vital Signs: Last Vital Signs Temp 97.8 F 04/17/25 18:23 Pulse 91 04/17/25 18:23 Resp 16 04/17/25 18:23 BP 141/57 H 04/17/25 18:23 Pulse Ox 97 04/17/25 18:23 O2 Del Method Room Air 04/17/25 18:23 BMI result Body Mass Index 27.3 Const: General: cooperative, healthy appearing, comfortable and no acute distress Orientation/consciousness: patient oriented x3 Limitations: no limitations HEENT: Head: Yes normal to inspection, No Read's sign and No raccoon eyes Ears: hearing grossly normal bilaterally and TM's normal bilaterally General nose exam: Normal external nose present Face and sinus: Yes normal facial exam Mouth: Normal oral and palatal mucosa present Throat: Yes posterior oropharynx normal, Yes tonsils normal and Yes uvula midline Eyes: General: appearance normal, both eyes and all related structures Pupils: Equal, round and reactive pupils present Neck: Other: No cervical midline tenderness, step offs or deformities, FROM Neck: Yes normal visual inspection, Yes full ROM, Yes no lymphadenopathy and Yes no meningeal signs Chest: Chest palpation & inspection: normal inspection of the chest Resp: Effort & Inspection: normal respiratory effort Auscultation: clear to auscultation bilaterally Cardio: Rate: regular rate Rhythm: regular rhythm Peripheral pulses: Peripheral pulses 2+ throughout GI: Inspection: Yes normal to inspection Palpation (GI): Soft to palpation and nontender Auscultation: normal bowel sounds Back/Spine/Pelvis: Other: There is tenderness on palpation to the lumbar mid spine with no step-offs or deformities. this is worsened with flexion extension of lumbar spine Thoracic/Lumbar Spine: thoracic and lumbar spine normal to inspection Skin: General skin exam: no rashes or lesions noted Neuro: General: patient oriented x3, moves all extremities, no meningeal signs, no focal motor deficits and normal sensation to monofilament Cranial nerves: Yes CN's II-XII intact bilaterally, Yes Equal, round and reactive pupils present, Yes Bilaterally intact EOM present, Yes Nystagmus not present, Yes Normal facial strength present and Yes Midline tongue present Cognition (Neuro): normal cognition Speech: No Abnormal speech present Gait exam (Neuro): Normal gait present Motor exam (neuro): 5/5 motor strength present throughout Sensory Exam: Normal double simultaneous stimulation for sensation Extrem: General: Yes normal to inspection Course Course Course Narrative: This is a Rapid Medical Examination (RME) performed by Rylee Weaver NP in triage. Full assessment, plan deferred to home health clinician. 79-year-old female patient, history of Parkinson's disease, gait abnormality, mild cognitive impairment/dementia on Namenda, chronically anticoagulated on warfarin presents to the ED with her son for evaluation after a fall that occurred 2 days ago. The fall 2 days ago was unwitnessed. Her son does not live with her, but reports that she is not at her baseline status. She has been leaning towards the right side/forward, and he is concerned she has been very uncomfortable. The patient is not overly complaining of pain. She is complaining of bilateral hip pain, low back. Patient reports she fell into the first coat sander sideways on her right side. She is favoring leaning towards the right side. Describes the sensation that she has muscle pain or spasm in both hips and low back. At baseline she ambulates with a walker. Hx of PD, unsteady gait. The fall history is very unclear. She denies any head strike, LOC. It is unclear if she fell to the ground or not. Plan: XR hip and pelvis b/l, lumbar spine, b/l ribs with chest. Reevaluation(s) Reevaluation #1: 1930- Reviewed findings with the patient and her son at the bedside. Pain is improving but not resolved. They are comfortable with her being discharged home as she lives with a son. We did discuss analgesia at home. They feel that she will be okay with Tylenol and Lidoderm patches but would like a prescription for Flexeril just in case she needs something at nighttime. We did discuss risk of falling and they will use this cautiously. Reviewed worrisome signs and symptoms of when to return to the emergency room. Comfortable plan for discharge home. Medications Administered Discontinued Medications Generic Name Dose Route Start Last Admin Trade Name Jennifer PRN Reason Stop Dose Admin Acetaminophen 975 mg 04/17/25 17:29 04/17/25 17:38 Acetaminophen 325 Mg Tablet PO 04/17/25 17:30 975 mg ONCE ONE Administration Lidocaine 1 patch 04/17/25 17:29 04/17/25 17:39 Lidocaine 4 % Patch Adh..Patch TRANSDERMA 04/17/25 17:30 1 patch ONCE ONE Administration Protocol Medical Decision Making Medical Decision Making MDM Narrative: 79 yo female with history of afib on coumadin, cognitive impairment, parkinsons, GERD, HTN Presents to the ER with complaints of lower back pain after a fall which occurred on Friday. Patient reports she was with her walker and she lost her balance falling backwards hitting her back on the first coat sander. She is unsure if she actually fell to the ground. She does not believe that she hit her head. There was no loss of consciousness. Pain has been gradually getting worse since then. Her last dose of Tylenol was today at 07:00. She denies any headache, neck pain, back pain, chest pain, shortness of breath, abdominal pain, weakness /numbness / tingling of lower upper extremities, vision changes or vomiting. There is tenderness on palpation to the lumbar mid spine with no step-offs or deformities. this is worsened with flexion extension of lumbar spine will check x-ray the history surrounding the fall does seem like the details are pretty fuzzy for the patient so because of this I will order a CT head and cervical spine as she is currently anticoagulated with Coumadin will check INR Differential Diagnosis Differential Diagnoses: The differential diagnosis associated with the presentation includes fracture, contusion Admission/Observation Consideration of admission/observation: Escalation of care including admission/observation considered Lab Data [facility] Lab Attestation statement: I reviewed the patient's lab results. 04/17/25 17:47 04/17/25 17:47 Labs: Lab Results 04/17/25 Range/Units 17:47 WBC 8.1 (4.8-10.8) X10*3/uL RBC 4.27 (4.20-5.50) X10*6/uL Hgb 13.7 (12.0-16.0) g/dl Hct 40.5 (37.0-47.0) % MCV 94.8 (80.0-98.0) fL MCH 32.1 (27.0-33.0) pg MCHC 33.8 (31.0-35.0) g/dl RDW 13.2 (11.0-16.0) % Plt Count 225 (160-400) X10*3/uL MPV 10.4 (9.4-12.3) fL Immature Gran % (Auto) 1.0 H (0.0-0.4) % Neut % (Auto) 66.2 (45-73) % Lymph % (Auto) 22.4 (20-40) % Sawyer % (Auto) 8.8 (2-11) % Eos % (Auto) 1.1 (0-4) % Baso % (Auto) 0.5 (0-2) % Lymph # (Auto) 1.8 (1.2-4.9) X10*3/uL Sawyer # (Auto) 0.7 (0.1-1.2) X10*3/uL Eos # (Auto) 0.1 (0.0-0.4) X10*3/uL Baso # (Auto) 0.0 (0.0-0.2) X10*3/uL Abs Immat Gran (auto) 0.08 H (0.00-0.03) X10*3/uL Absolute Neuts (auto) 5.4 (2.0-8.3) x10*3/uL Absolute Nucleated RBC 0.000 (0.0-0.012) X10*3/uL Nucleated RBC % (auto) 0.0 (0.0-0.2) /100WBC PT 29.4 H (11.2-13.5) SEC INR 2.5 H (0.9-1.1) Sodium 141 (135-145) mmol/L Potassium 3.6 (3.3-5.1) mmol/L Chloride 106 (96-108) mmol/L Carbon Dioxide 26 (22-29) mmol/L Anion Gap 13 (12-20) BUN 15 (9-16) mg/dL Creatinine 0.75 (0.5-1.4) mg/dL Estim Creat Clear Calc 59.2 Estimated GFR > 60 Random Glucose 95 (60-115) mg/dL Calcium 9.3 (8.4-10.2) mg/dL Total Bilirubin 1.3 H (0.0-1.0) mg/dL Direct Bilirubin 0.4 (0.0-0.5) mg/dL AST 25 (5-31) U/L ALT 14 (0-31) U/L Alkaline Phosphatase 77 (39-117) U/L Total Protein 7.4 (6.5-8.0) g/dL Albumin 3.9 (3.5-5.0) g/dL Independent Interpretation I performed an independent interpretation of an: Plain X-Ray and CT Scan Interpretation: I independently viewed the x-ray and CT scan agree with the radiology report Radiology Impression Discussion of test interpretation with radiology: I have reviewed the radiologist's reading. Radiologist Impression: [address] [address] XRay Report Signed Patient: Erika Trejo MR#: [id number] : 1945 Acct:[id number] Age/Sex: 79 / F ADM Date: 04/17/25 Loc: HO.ED Attending Dr: Ordering Physician: Rylee Weaver Date of Service: 04/17/25 Procedure(s): XR hip BI w PEL1V Accession Number(s): [id number] cc: Rylee Weaver; Jermain Delgado MD~ Reason for Exam: Fall CLINICAL HISTORY: Fall 3 view, pelvis and bilateral hips Comparison: None provided Findings: No acute fracture or dislocation. No significant arthritic change of the hips. The soft tissues are unremarkable. IMPRESSION: No acute findings. This document has been electronically signed by: Lesley Payne MD on 04/17/2025 19:01:[address] [address] XRay Report Signed Patient: Erika Trejo MR#: [id number] : 1945 Acct:[id number] Age/Sex: 79 / F ADM Date: 04/17/25 Loc: HO.ED Attending Dr: Ordering Physician: Rylee Weaver Date of Service: 04/17/25 Procedure(s): XR lumbar spine 2-3V Accession Number(s): [id number] cc: Rylee Weaver; Jermain Delgado MD~ Reason for Exam: Fall CLINICAL HISTORY: Fall 3 views lumbar spine Comparison: None provided Findings: Grade 1 anterolisthesis of L3 on L4 and L4 on L5. No acute fractures or dislocation. Degenerative disc disease at L4-L5 and L5-S1 with facet arthropathy from L3-L4 through L5-S1. Aortic atherosclerosis. IMPRESSION: No acute findings. This document has been electronically signed by: Lesley Payne MD on 04/17/2025 18:59:[address] [address] XRay Report Signed Patient: Erika Trejo MR#: [id number] : 1945 Acct:[id number] Age/Sex: 79 / F ADM Date: 04/17/25 Loc: HO.ED Attending Dr: Ordering Physician: Rylee Weaver Date of Service: 04/17/25 Procedure(s): XR ribs BI min 4V w CXR1V Accession Number(s): [id number] cc: Rylee Weaver; Jermain Delgado MD~ Reason for Exam: Fall CLINICAL HISTORY: Fall 4 view, chest and bilateral ribs Comparison: None provided Findings: Bones intact. No dislocations. The lungs are unremarkable. IMPRESSION: 1. No acute fractures. This document has been electronically signed by: Lesley Payne MD on 04/17/2025 18:58:[address] [address] [address] Scan Report Signed Patient: Eriak Trejo MR#: [id number] : 1945 Acct:[id number] Age/Sex: 79 / F ADM Date: 04/17/25 Loc: HO.ED Attending Dr: Ordering Physician: Peggy Elaine NP Date of Service: 04/17/25 Procedure(s): CT cervical spine wo IV con Accession Number(s): [id number] cc: Jermain Delgado MD; Peggy Elaine NP~ Report Number: [id number]: Total DLP = 949.00 mGy-cm Reason for Exam: fall, ?head strike, on AC CLINICAL HISTORY: fall, ?head strike, on AC CT cervical spine without contrast Comparison: None provided Findings: Vertebral alignment is within normal limits. Mild multilevel degenerative changes. No acute fractures or dislocations. No acute findings on limited view of the intracranial contents. No cervical fluid collections or masses. Lung apices are clear. IMPRESSION: No acute findings. Independent Historian Clinical information obtained from an independent historian. History obtained from or confirmed by: Other (son) Discharge Plan Discharge Clinical Impression: Lumbar contusion Patient Disposition: Home, Self-Care Instructions: Contusion in Adults (ED) Additional Instructions: x-rays of your hip, pelvis, lower spine and chest are all normal with no signs of fracture Your CT scan of your head and neck shows no signs of fracture or bleeding your INR is 2.5. follow your Coumadin dosing schedule take Tylenol for pain as needed. Take the additional prescriptions as prescribed. Be aware that cyclobenzaprine can cause dizziness increases your risk for fall so please be careful with taking this medication. Follow up with her primary care doctor Prescriptions: New lidocaine [Lidoderm] 5 % adhesive patch,medicated 1 patch topical DAILY Qty: 15 0RF Rx Instructions: leave on most painful area for up to 12 hrs cyclobenzaprine 5 mg tablet 5 mg PO TID PRN (Reason: muscle spasm) Qty: 12 0RF No Action lisinopril 30 mg tablet 30 mg PO DAILY metoprolol succinate 200 mg tablet extended release 24 hr PO DAILY famotidine 20 mg tablet PO DAILY warfarin 5 mg tablet 5 mg PO DAILY loratadine [Allergy Relief (loratadine)] 10 mg tablet 10 mg PO DAILY memantine 21 mg capsule,sprinkle,ER 24hr 21 mg PO DAILY Qty: 30 0RF memantine 28 mg capsule,sprinkle,ER 24hr 28 mg PO DAILY Qty: 30 6RF Rx Instructions: after 30 day course of 21mg donepezil 5 mg tablet 5 mg PO DAILY Qty: 30 6RF carbidopa-levodopa 25-100 mg tablet 1.5 tab PO TID Qty: 150 6RF Referrals: Jermain Delgado MD [Primary Care Provider, Family Practice] Print Language: Swiss
[2025-04-17 17:02] VITALS: BP 157/86; PULSE 87; RESP 18; TEMP 36.6; O2SAT 91; BMI 27.3
[2025-04-17 17:17] VITALS: BP 146/94; PULSE 84; RESP 14; RESP 16; TEMP 36.6; O2SAT 92; O2SAT 98
[2025-04-17 17:27] VITALS: O2SAT 98
--- OUTSIDE RECORDS SUMMARY | 2025-04-17 17:35 | XMS_ITS | Encounter Summary ---
Author Organization [facility] Address [address] [place] [id number] Phone Care Team Providers Care Vice President Of Product Marketing Name Role Phone Jermain Lopez MD Primary Care Prov ider Cody Jenkins MD, PhD Unavailable [phone] Reason for Referral * MRI/CAT Scan - Closed Specialty Diagnoses / Procedures Referred By Kimberly singh Referred To Contact Radiology Diagnoses Parkinsonism, unspecified Parkinsonism type Procedures MRI Brain Sandra Enriquez MD Phone: tel: fax: [email or web address] Referral ID Status Reason Start Date Expiration Date Visits Re quested Visits Authorized [id number] Closed 06/29/2024 06/29/2025 1 1 Encounter Details Date Type Department Care Team (Latest Contact Info) Description 06/29/2024 Transcribe Orders Virtual Department [address] [place] [address] Sandra Enriquez MD [address] [facility] [address] [place] [address] [email or web address] Parkinsonism, unspecified Parkinsonism type (Primary Dx) Social [...] Description 04/03/2026 2:40 PM EST Office Visit [facility] [address] [place] [address] [address], [address] [place] [address] Bharathi Palma MD [address] [place] [address], [address] [address] documented as of this encounter Results * [...] clinician's provided indication for this examination in [facility]: Outside Radiology Order; parkinsonism TECHNIQUE: MRI [...] chronic small vessel disease. Cortical and subcortical [id number] in the LEFT frontal operculum, likely sequela [...] type documented in this encounter Care Teams Vice President Of Product Marketing Relationship Specialty Start Date End Date Jermain Lpoez MD PCP - General 02/13/17 Cody Jenkins MD, PhD [address] [place] [id number] [email or web address] Consulting Provider Hematology 03/15/21 documented as of this encounter Additional Source Comments The information contained in this document represents components of the legal health record. It is not the complete legal health record.[facility]
--- OUTSIDE RECORDS SUMMARY | 2025-04-17 17:35 | XMS_ITS | Data Portability ---
Author Organization [facility] [place] [employer] [place] [facility], [facility] Address [address] [address] Care Team Providers Care Packing Checker Name Role Phone ZEV MCMILLAN Primary Care Provider Assessment Encounter Date Assessment Date Assessment LastModified [...] in our records Assessment: MOCA done by Dr Andi Iyer [facility]. Difficulty on tasks measuring working memory and language fluency. Plan: Further w/u: Son will check on labs including B12, folate, MMA and TSH - if not done we will order Will order MRI Brain I think it crucial that Erika be seen for a Movement disorders/Neurology evaluation - could be [facility] or she asked about [facility]. Son will [...] finances are limited. Gave son information on [facility]. He will need to contact them [...] [facility] coming [facility]. Labs: Head imagin06/2024: no acute findings. Mild chronic vessel ischemia Assessment: MOCA done by Dr Andi Iyer, [facility]. Difficulty on tasks measuring working memory and language fluency. Plan: Further w/u: Son will check on labs including B12, folate, MMA and TSH - will check I think it crucial that Erika be seen for a Movement disorders/Neurology evaluation - could be [facility]. - They have an appt with Dr [...] term, appreciating that finances are limited, [employer] [facility]. There are some things that we [...] 2. Function: a. Lugo ADL: 6 b. [place] IADL: 5 needs help with shopping, transportation, food prep, finances c. Plan: Family overseesing medications, finances. They have MOW and are getting [facility] to come in and assess for [...] to [facility] - would like referral to [employer] [facility] Mobility: Gait instability with multiple falls at [...] a. Assessment tool: Stress thermometer: moderate ; ZADEONTET-12: 9 b. Plan: WIll have our dementia adult care manager reach out to family -and to talk to her . 9. Advance care planning: helping my family, not being a burden Family: continued independence a. Checklist reviewed b. Plan (Preferences and legal needs): c. HCP: Yes sons Yang & iliana Covarrubias - completed - asked to give a [...] education of above. Not available 08/11/2024 10:36:39 02/16/2025 02/16/2025 Assessment and p romero based on Geriatric 5 M framework (Mind, Mobility, Multicomplexity, Medications, and Matters Most) This is a 79 y/o woman with PMH sig for htn, afib, hypercoagulability state, OA, OP, GERD, BPPV, seen for f/u geriatric evaluation in light of cognitive impairment and gait instability. Cognitive Care Plan Elements: 1. Cognition: Cognitive impairment which seems c/w mild dementia (vs MCI) and Parkinsonism, based on history, exam and MOCA assessment. Ddx includes Frontotemporal dementia (FTD) such as PSP, PPA, an atypical Alzheimer's or a vascular etiology though symptoms have [...] what can be done to help/reverse things. They had PT/OT/nursing and SW in from [facility], [facility], [facility] is coming in. Since last visit, cognition seems stable overall but increasing gait instability with falls and word finding difficulty. Labs: Head imagin06/2024: no acute findings. Mild chronic vessel ischemia Assessment: MOCA done by Dr nAdi Iyer, [facility]. Difficulty on tasks measuring working memory and language fluency. MOCA 8.3, done today, 10.22.25 VIsuospatial/executi ve: 3/5 difficulty with copying, numbers Namin/3 Attention: 6/6 Language: 2/3 difficulty with fluency Abstraction: 2/2 Delayed recall: 2/5; MIS = 15 Orientation: 6 Score: 24/30 - very tenacious Plan: Further w/u: - They have seen Dr Kelley, Neurology and are happy with her. - They had an appt with [facility] but will cancel that. Medications: On donepezil 5 mg and now namenda 14 mg ER 24 hr Agree with no further driving - Erika understands. Continue planning for the short term and longer term, appreciating that finances are limited, [facility] There are some things that we know can help with overall cognition: Physical activity is the best thing - 30 minutes 4-5 times a week but start off slow and build up Mental activity - learning a new skill Social activity Meditation and/or Chuy Chi can help Diagnosis reviewed? Yes 2. Function: a. Lugo ADL: 5.5 from 6 b. Shauna-Jose IADL: 3 from 5 needs help with shopping, transportation, food prep, finances c. Plan: Family overseeing medications, finances. They have MOW and have been in touch with [facility] [facility] as well as [facility] to come in and assess for more help. They are working to get someone in to help clean. 3. Stage of cognitive impairment: a. Dementia Severity Rating Scale (DSRS) : Mild: 16 from 15 - changes in memory, speech, orientation to time, ability to make decisions, social and home activities, cleanliness, b. Plan: i. Continue to think about planning for the future based on stages and care recommendations 4. Decision-making: a. 3 level rating scale global clinician judgement: Able b. (Able to make own decisions, not able to, uncertain/needs more evaluation) c. Plan: able at this point to make medical decisions with family. 5. Neuropsychiatric symptoms: apathy, irritability, nightime behaviors, appetite, safety/falls a. Assessment tool: NPI-Q (12 items) [...] (Potentially Inappropriate Medications) identified: None c. Administration: Son is monitoring and things are going ok but forgetting some of the sinemet doses. She is on coumadin and family has monitoring INR at home. - Consider blister pack medication organization by time to improve adherence - Consider medication reminder system with [employer] alarms 7. Safety: a. Safety Assessment Guide: i. Is the patient still driving? no ii. Is the patient taking medications as prescribed? Not always iii. Are there concerns about safety in [...] bending over to get something. b. Plan: Mobility: Gait instability with multiple falls at high risk for recurrent falls with injuries. Plan: They have another referral to [facility] - would like another referral to [employer] [facility] Continue with walker at all times - appreciate she will continue bending down to do things like feed her cat Continue with PT/home safety evaluation. Not doing anything at all for movement - appreciate has OA which limits but very deconditioned. She now has a lifeline 8. Caregiver identification and needs assessment: a. Assessment tool: Stress thermometer: moderate ; ZARIT-12: 9 from 9 b. Plan: We had our dementia adult care manager reach out to family and that was helpful. He knows we are available if he needs assistance. 9. Advance care planning: helping my family, not being a burden Family: continued independence a. Checklist reviewed b. Plan (Preferences and legal needs): c. HCP: Yes sons Yang & Satish, sons - completed - asked to give a copy d. MOLST: No e. POA: Everything is all written out. f. Is there an emergency plan in [...] Written plan shared with PCP Will f/u as needed. Not available 02/16/2025 10:52:26 Plan of Treatment Reminders Order Date Submit Date Provider Last Modified By Organization Details Last Modified Time Details Appointments None recorded. Lab None recorded. Referral speech language pathologist referral - call alis almonte [phone] to schedule. has dysarthria, trouble with word finding. getting PT; Would like Madeleine if possible. 2024 025 [email or web address] [facility], [address], [address], [place], [address], 5 12:13:36 speech language pathologist referral - call alis almonte to schedule. has dysarthria, trouble with word finding. getting PT 2024 025 [facility] - Intake, [address], [address], [place], [address], 5 10:20:26 neurologist referral - Call alis almonte to schedule . has dementia with parkinsonis m - please evaluate and treat. 2024 025 Neal Robert MD, [address], [place], [address], 5 17:03:22 home health referral - parkinsonis m, falls, atrial fibrillatio n. 2024 025 Chau, [address], [place], [address], 5 16:03:54 Procedures None recorded. Surgeries None recorded. Imaging MRI, head, w/o contrast - MRI Brain. Call alis almonte [phone] to schedule. Concern for PSP. [email or web address] [facility] [address] [facility], [address] [place], [address], 21:50:08 Medication Orders None recorded. Patient TargetsNo targets recorded. Patient InstructionsNo instructions recorded. Reason for Referral Home Health Referral for Uns teady when walking parkinsonism, falls, atrial fibrillation. parkinsonism, falls, atrial fibrillation. Can call alis almonte [phone] to help arrange if Erika doesnt answer Referring Physician: [facility], Encounter Date: 06/29/2024 Neurologist Referral for Par kinsonism has dementia with parkinsonism - please evaluate and treat. Call alis almonte [phone] to schedule . has dementia with parkinsonism - please evaluate and treat. Referring Physician: Antoinette [facility], Encounter Date: 08/11/2024 Speech Language Pathologist Referral for Dysarthria has dysarthria, trouble with word finding. getting PT call alis almonte [phone] to schedule. has dysarthria, trouble with word finding. getting PT Referring Physician: Sandra [facility], Encounter Date: 08/11/2024 Speech Language Pathologist Referral for Dysarthria has dysarthria, parkinsonism call alis almonte [phone] to schedule. has dysarthria, trouble with word finding. getting PT; Would like Madeleine if possible. Referring Physician: Sandra [facility], Encounter Date: 02/16/2025 Results Created Date Observation Date Name Description Value Unit Range Abnormal Flag Note LastModifiedBy Organization Detail LastModifiedTime 07/20/1907/15/2024 MRI, head, w/o contr ast No observ ation record ed. [facility] [address] [facility], [place], [address], 07/20/2024 19:09:34 Result Notes None recorded. Problems Name Problem SNOMED Code Status Onset Date Resolution Date Notes Provider Name and Address Organization Details Recorded Time Hypertensive disorder 16320233 Active 2024 Sandra Enriquez MD [address], [place], [address], [employer] 07:35:47 Hypercoagulabi lity state 27296244 Active 2024 Sandra Enriquez MD [address], [place], [address], [employer] 07:36:18 Atrial fibrillation 79848519 Active 2024 Sandra Enriquez MD [address], [place], [address], [employer] 07:36:27 Osteoporosis 18258809 Active 2024 Sandra Enriquez MD [address], [place], [address], [employer] 5 07:36:34 Gastroesophage al reflux disease 059905523 Active 2024 Sandra Enriquez MD [address], [place], [address], [employer] 07:36:40 Osteoarthritis 546894770 Active 2024 Sandra Enriquez MD [address], [place], [address], [employer] 5 07:36:50 Benign paroxysmal positional vertigo 217600610 Active 2024 Sandra Enriquez MD [address], [place], [address], [employer] 5 07:38:28 Unsteady when walking 80323583 Active 2024 Sandra Enriquez MD [address], [place], [address], [facility] 5 10:59:47 Problem Notes None recorded. Medical Equipment None Reported. Allergies Allergen ID Allergen Name Allergen Category Reaction Reaction Severity Criticality Documentation Date Start Date Code Code System Note Provider Name and Address Organization Details Recorded Time 1898 erythromy vanessa medicatio n Not available Not available Not available 04/07/20252016 4053 RxNorm Not Available [employer] - prod 5 10:51:49 1899 latex environme nt,medica tion rash Not available low 04/07/20252024 03226 91 RxNorm Not Available [employer] - External Data Service - prod 10:51:49 1900 penicilli n G benzathin e / penicilli n G procaine medicatio n Not available Not available Not available 04/07/20252016 33328 3 RxNorm Not Available [employer] - External Data Service - prod 5 10:51:49 1901 Product containin g penicilli n (product) medicatio n diarrhea Not available Not available 04/07/20252024 88921 8001 SNOMED Other React ion(s ): GI REACT ION Not Available [employer] - External Data Service - prod 5 10:51:49 1902 Adhesive agent (substanc e) environme nt,medica tion Not available Not available Not available 04/07/20252017 81038 0007 SNOMED Irrit ated skin, swoll en, red unrec ogniz ed react ion (text : [place] titis , code: 96452 2006) (from exter nal sourc e) Not Available romana - External Data Service - prod 5 10:51:49 1903 azithromy vanessa medicatio n Not available Not available Not available 04/07/2025 98232 RxNorm Not Available rom[employer] - External Data Service - prod 5 10:52:00 Medications Name Sig Start Date Stop Date Status Note LastModified by Organization Details LastModified Time donepezil 10 mg tablet Take 1 tablet daily 2024 active Not Available Not Available Not Avai lable metoprolol succinate ER 200 mg tablet,exte nded release 24 hr active Not Available Not Available Not Available famotidine 20 mg tablet active Not Available Not Available Not Available warfarin 5 mg tablet active Not Available Not Available No t Available lisinopril 30 mg tablet active Not Available Not Available Not Available carbidopa 25 mg-levodopa 100 mg tablet TAKE 1 TABLET BY MOUTH THREE TIMES A DAY active Not Available Not Available No t Available memantine 14 mg capsule sprinkle,ex tended release 24hr TAKE 1 CAPSULE BY MOUTH EVERY DAY active Not Available Not Available No t Available memantine 7 mg capsule sprinkle,ex tended release 24hr PLEASE SEE ATTACHED FOR DETAILED DIRECTION S 02/16 completed Not Available Not Available Not Available Vitals Date Recorded Body weight Body mass index (BMI) Body height Respiratory rate Provider Name and Address Organization Details Last Updated DateTime 06/29/2024 36383.48 g 28.8 kg/m2 165.1 cm 18 /min Sandra Enriquez MD [address] [place] [address], [address] , [employer] 06/29/2024 11:12:40 Date Recorded Body height Oxygen saturation Heart rate Systolic And Diastolic Provider Name and Address Organization Details Last Updated DateTime 08/11/2024 165.1 cm 99 % 66 /min 140/70 mm[Hg] Ses[facility]a 08/11/2024 09:40:01 Date Recorded Body height Body mass index (BMI) Body weight Oxygen saturation Heart rate Systolic And Diastolic Provider Name and Address Organization Details Last Updated DateTime 165.1 cm 28.8 kg/m2 01343.4 8 g 97 % 63 /min 132/72 mm[Hg] Sesamea 09:59:44 Social History None recorded. Functional Status None recorded. Mental Status None recorded. Family History Relationship Description Onset Age of this Age Resolved Age Notes LastModified by Organization Details LastModified Time Mother Malignant neoplasm of stomach Not available 2024 07:37:14 Father Cerebrovascu lar accident age 66 Not available 06/29/2024 07:37:29 Medical History No medical history recorded. Gynecological HistoryNo gynecological history recorded. Obstetrics History GPAL:G 0 P 0 0 0 0 Past Encounters Encounter ID Performer Location Encounter Start Date Encounter Closed Date Diagnosis/Indication Diagnosis SNOMED-CT Code Diagnosis ICD10 Code Diagnosis IMO Codes Diagnosis Note [id number] MD Zoe Ro [facility] [address] [address] 06/29/2024 11:09:40 06/29/2024 13:43:55 Parkinsonism 97587502 G20.C Unsteady when walking 22 481955 R26.89 [id number] MD Zoe Ro [facility] [address] [address] 08/11/2024 09:23:29 08/13/2024 12:15:47 Parkinsonism 36332243 G20.C [facility], [facility] Unsteady when walking 22 055514 R26.89 We put in a referral to Dr Kelley Neurologis t per son request. Mild dementia [id number] 80879 F03.A0 [id number] as above Dysarthria 1910705 R47.1 68899 will put in [employer] [facility] how frustratin g this can beCan always ask Charley Linares who might be able to help, but time is limited. [id number] Sandra Enriquez MD Enriquez [facility] [address] [address] 02/16/2025 09:25:58 02/16/2025 10:54:49 Parkinsonism 13994736 G20.C as above.On sinemet and seeing Dr Kelley Unsteairlanda when walking 22 910672 R26.89 Physical mobility and exerciseAs sessment: Patient reports not exercising as she should, only when physical therapy staff visits the home. She ambulates with a walker and demonstrat es good technique with doorways, stairs, and proper placement, though attempts to do extra activities lead to problems. Patient had recent falls including one in shower requiring 911 call and another fall on face. [place] that present challenges .Plan:- Reorder home physical therapy and occupation al therapy- Encourage regular physical activity and walking- Consider grocery store walking with shopping cart for exercise- Suggest mall walking as weather changes- Recommend brother accompany patient for shopping trips to get more exercise Mild dementia [id number] 67260 F03.A0 [id number] as above Dysarthria 4722702 R47.1 59206 will put in another [employer] order through [facility] how frustratin g this can be Goals Section Goal Description Progress Status Start [...] LastModified Time Mild neurocognitive disorder Active [employer] Not Available 07/22/2024 20:1 2:10 Advance Directives Directive None Recorded Payers Insurance Date Sequence Insurance Name Policy Number Policy Silver Covered Member ID Silver Member ID Guarantor Name 04/09/2025 1 MEDICARE B-[place]: [facility] Erika Wong Maya [id number] Erika Maya 02/16/2025 2 [facility] [id number] Erika Wong Maya [id number] Erika Maya Notes Date Note Type Note Provider Name and Address Organization Details Recorded Time 5 text/html DementiaReported by PatientROS as noted in the HPI PCP: Dr Turner Referred by: PCP Person to contact for follow up visits: Yang Trejo, [address] [place] [address], Goals for visit: overall evaluation of current [...] a CT [facility] brain at [facility] - no acute bleeds. No referral to [...] Note had MOCA done by Dr Andi Iyer [facility]. Score 21/30 with difficulty on takks measuring [...] memory?: yesFeels safe at home: yesHearing Test: Treasure[place] exam: noDentist: noHave you decreased the amt of time you spend with family/friends in the past year?: yes Physical fitness: no Frailty Screening:Fatigue: noResistance (able to climb a flight of stairs): yes - difficultAerobic (able to walk a block): noPresence of > 5 illnesses(HTN, DM, CA, chronic respiratorydisease, TN, CVA, arthritis (or RA), CKD, or liver disease): noWeight loss > 5% in the past 6 months: noScore: (Robust: 0, Pre-frail: 1-2, Frail: >=3) 1-2 Social History:Born[place]raised[place] only childGood childhood, father was sick from the time she was 10 years old, she would help take care of himEducational level: 2 years college associatesLiving situation: [facility], [facility], lives with , Stone Goldstein, about 20 years.Sexual orientation: straightPartnership status: x 1968, - Benja. His memory is better than hers.Occupation: retired, admin assist, residency program, [employer]; not sure what year she left thereChildren: 2 Kyra Soria & Neel, lives with herIn contact with them? yesETOH: used to drink but quit; was never a heavier drinkerConcern about amount of ETOH? n/aTobacco: noOther drugs: noSpare time - spents time talking, not doing anything. she liked to play cards Sandra Enriquez MD [address] [place] [address],[email or web address]], [place], [phone], [employer] [facility] [employer] 06/29/2024 13:43:27 5 text/html ROS as noted in the HPI Subjective: here with son Deshawn last visit: [...] saw her for the third time yesterday. [employer] is coming in as well to do [...] communication are ongoing issues. They would like [employer].They are in with Dr Kelley, Neurology, on [...] initial visit discussed?: Yes Sandra Enriquez MD [address] [place] [address],[facility] [address], [place], [address], [facility] - [facility] 08/11/2024 10:38:16 5 text/html ROS as noted in the HPI Since last visit, CCP 08.11.25 Donepezil started09.07.24 - Seen by Dr Ch neurology appt 03.10.25 - they will forego that one.14.25 - B12 692, folate> 20, TSH 1.026.16.25 - increase in donepezil caused diarrhea8.12.25 - seen by Neurologist - WADE, Sdkaruivfrht58.13.25 - fall Lives with her and son in the basement History of Present Illness Erika presents with her son Yang for routine follow-up to assess her current status and medication management. She reports feeling pretty good overall and continues to live at home with her . Since the last visit, she was started on donepezil and experienced some diarrhea as a side effect when dose increased to 10 mg. She is currently taking 5 mg and tolerating it well. She has been seeing Dr. Calvo, who diagnosed her with parkinsonism and started her on memantine. Dr. Calvo also prescribed Sinemet (carbidopa-levodopa), which she takes twice daily in the morning and evening, with a third dose added at the last visit. The patient reports that the Sinemet seems to help with things a little bit. However, she admits to forgetting to take the carbidopa-levodopa sometimes, occasionally taking it at the wrong time or with meals, when she knows it should not be taken with protein. Regarding her cognitive status, the patient states my memory is fine but acknowledges having a hard time speaking and expresses concern about recalling words. She previously received speech therapy through [facility] with a therapist named Madeleine and found it helpful. Dr. Calvo performed a cognitive assessment that included questions about days of the week and the president but did not include drawing tasks or word repetition exercises. A PET scan was performed to evaluate for progressive supranuclear palsy (PSP), which showed no indications for that condition, per son Yang. The patient admits she is not exercising like I'm supposed to. She used to exercise when a healthcare provider would come to the home, and she would exercise during those visits but not independently. Medical History- Parkinsonism diagnosed by Dr. Calvo- Fall in shower requiring emergency medical evaluation- Fall resulting in facial injury Medications and Supplements- Donepezil 10 mg by mouth daily- Had some diarrhea when started, taking half tablets- Namenda 14 mg by mouth daily- Tolerating well, Medicare covers it with very small charge- Carbidopa-levodopa (Sinemet) by mouth twice daily in morning and evening, with third dose added- Sometimes forgets to take it or takes at wrong time or with meals, helps with symptoms a little bit Sandra Enriquez MD [address] [facility] [address], [place], [address], [facility] 02/16/2025 10:54:25 OBGyn Episode No OBEpisode recorded.
--- OUTSIDE RECORDS SUMMARY | 2025-04-17 17:35 | XMS_ITS | Patient Health Record ---
Author Organization [facility] Address [address] [place] [address] Care Team Providers Care Sound Effects Supervisor Name Role Phone Jermain Turner Primary Care Provider Bhanu Butts [phone] Allergies Allergen (clinical drug ingredient) Drug/Non Drug [...] Status Risk Notes Problem Blood in stool (549759095) Blood in stool (K92.1) Active confirmed Problem Constipation (68626748) Constipation, unspecified constipation type (K59.00) Active confirmed Plan Of Treatment Future Test Test Name Order Date COLONOSCOPY 10/28/2015 Insurance Providers Payer Name Payer Address Payer Phone Subscriber Number Group Number Insured Name Patient Relationship to Insured Coverage Start Date Coverage End Date MEDICARE OF [place] [address] RUSSELL OGDEN [id number] [phone] [id number] ELENI NGUYEN Self - patient is the insured MEDEX ATTN CLAIMS [address] [place] [address] [id number] ELENI NGUYEN Self - patient is the insured Medical (General) History Medical History History ICD Code Hypertension Denies AL,DM,CVA,Lung disease,renal dise ase Afib Pancreatitis--due to a gallstone--at [facility] --had a CCY Urinary incontinence Surgical History Surgery Date(Month/Year) hysterectomy for fibroids surgery for bladder suspension and recto tunde x2 cholecystectomy
--- OUTSIDE RECORDS SUMMARY | 2025-04-17 17:35 | XMS_ITS | Continuity of Care Document ---
Author Organization [facility] [employer] [facility], [facility] Address [address] [address] Care Team Providers Care [employer] Name Role Phone ZEV MCMILLAN Primary Care Provider Assessment Encounter Date Assessment Date Assessment LastModified by Organization Details LastModified Time 02/16/2025 02/16/2025 Assessment and p romero based [...] They had PT/OT/nursing and SW in from [facility], MOW, [facility] Care is coming in. Since last visit, cognition seems stable overall but increasing gait instability with falls and word finding difficulty. Labs: Head imagin06/2024: no acute findings. Mild chronic vessel ischemia Assessment: MOCA done by Dr Andi Iyer, [facility]. Difficulty on tasks measuring working memory and language fluency. MOCA 8.3, done today, 10.22.25 VIsuospatial/executi ve: 3/5 difficulty with copying, numbers Namin/3 Attention: 10/01 Language: 2/3 difficulty with fluency Abstraction: 2/2 Delayed recall: 2/5; MIS = 15 Orientation: 10/01 Score: 2430 - very tenacious Plan: Further w/u: - They have seen Dr Kelley, Neurology and are happy with her. - They had an appt with [facility] but will cancel that. Medications: On donepezil 5 mg and now namenda 14 mg ER 24 hr Agree with no further driving - Erika understands. Continue planning for the short term and longer term, appreciating that finances are limited, [facility] There are some things that we know can help with overall cognition: Physical activity is the best thing - 30 minutes 4-5 times a week but start off slow and build up Mental activity - learning a new skill Social activity Meditation and/or Chuy Chi can help Diagnosis reviewed? Yes 2. Function: a. Lugo ADL: 5.5 from 6 b. [place] IADL: 3 from 5 needs help with shopping, transportation, food prep, finances c. Plan: Family overseeing medications, finances. They have MOW and have been in touch with [facility] as well as [facility] to come in and assess for more [...] adherence - Consider medication reminder system with [employer] Echo/Osiris alarms 7. Safety: a. Safety Assessment Guide: [...] Caretenders - would like another referral to COMMUNICATION ENGINEER Continue with walker at all times - [...] 9 b. Plan: We had our dementia acute care registered nurse reach out to family and that was helpful. He knows we are available if he needs assistance. 9. Advance care planning: helping my family, not being a burden Family: continued independence a. Checklist reviewed b. Plan (Preferences and legal needs): c. HCP: Yes iliana Soria & iliana Covarrubias - completed - asked [...] Would like Madeleine if possible. 2024 025 [email or web address] [facility], [address], [address], [place], [address], 5 12:13:36 Procedures None recorded. Surgeries None recorded. Imaging None recorded. Medication Orders None recorded. Patient TargetsNo targets recorded. Patient InstructionsNo instructions recorded. Reason for Referral Speech Language Pathologist Referral for Dysarthria has dysarthria, parkinsonism call alis almonte [phone] to schedule. has dysarthria, trouble with word finding. getting PT; Would like Madeleine if possible. Referring Physician: Sandra Enriquez, Geriatric Medicine, Encounter Date: 02/16/2025 Problems Name Problem SNOMED Code Status Onset Date Resolution Date Notes Provider Name and Address Organization Details Recorded Time Hypertensive disorder 40370496 Active 2024 Sandra Enriquez MD [address], [place], [address], [employer] [place] 5 07:35:47 Hypercoagulabi lity state 92645080 Active 2024 Sandra Enriquez MD [address], [place], [address], [employer] [place] 5 07:36:18 Atrial fibrillation 78444512 Active 2024 Sandra Enriquez MD [address], [place], [address], [employer] [place] 5 07:36:27 Osteoporosis 79285235 Active 2024 Sandra Enriquez MD [address], [place], [address], [employer] [place] 5 07:36:34 Gastroesophage al reflux disease 712687150 Active 2024 Sandra Enriquez MD [address], [place], [address], [employer] [place] 5 07:36:40 Osteoarthritis 850571918 Active 2024 Sandra Enriquez MD [address], [place], [address], [employer] [place] 5 07:36:50 Benign paroxysmal positional vertigo 612145316 Active 2024 Sandra Enriquez MD [address], [place], [address], [employer] [place] [employer] [place] 5 07:38:28 Unsteady when walking 77022621 Active 2024 Sandra Enriquez MD 264 [facility], [place], [address], [facility] 10:59:47 Problem Notes None recorded. Medical Equipment [...] nt,medica tion rash Not available low 04/07/20252024 00556 91 RxNorm Not Available [employer] - prod 5 10:51:49 1900 penicilli n G benzathin e / penicilli n G procaine medicatio n Not available Not available Not available 04/07/20252016 50122 3 RxNorm Not Available [employer] prod 5 10:51:49 1901 Product containin g penicilli n (product) medicatio n diarrhea Not available Not available 04/07/20252024 78654 8001 SNOMED Other React ion(s ): GI REACT ION Not Available [employer] [facility] 5 10:51:49 1902 Adhesive agent (substanc e) environme nt,medica tion Not available Not available Not available 04/07/20252017 09701 0007 SNOMED Irrit ated skin, swoll en, red unrec ogniz ed react ion (text : [place] titis , code: 23475 2007) (from exter nal sourc e) Not Available [employer] prod 5 10:51:49 1903 azithromy vanessa medicatio n Not available Not available Not available 04/07/2025 43920 RxNorm Not Available [employer] - prod 5 10:52:00 Medications [...] Available Not Available Vitals Date Recorded Body height Body mass index (BMI) Body weight Oxygen saturation Heart rate Systolic And Diastolic Provider Name and Address Organization Details Last Updated DateTime 165.1 cm 28.8 kg/m2 26838.4 8 g 97 % 63 /min 132/72 mm[Hg] [facility] 09:59:44 Social History None recorded. Functional Status [...] ICD10 Code Diagnosis IMO Codes Diagnosis Note 2606 Sandra Enriquez MD [facility] [address] [address] 02/16/2025 09:25:58 02/16/2025 10:54:49 Parkinsonism 11893402 G20.C as above.On sinemet and seeing Dr Kelley Unsteairlanda when walking 145168 R26.89 Physical mobility and exerciseAs sessment: Patient [...] trips to get more exercise Mild dementia 6319164845 59141 F03.A0 4633047650 as above Dysarthria 0324396 R47.1 94685 will put in another COMMUNICATION ENGINEER order through Sabrina lott how frustratin g this can be [...] Luh Calhoun Not Available 07/22/2024 20:1 2:10 Payers Encounter Date Sequence Insurance Name Policy Number Policy Silver Covered Member ID Silver Member ID Guarantor Name 02/16/2025 1 [place] [employer] Erika Trejo [id number] Erika Trejo 02/16/2025 2 [facility] [id number] Erika Trejo [id number] Erika Trejo Notes Date Note Type Note Provider Name and Address Organization Details Recorded Time 02/16/2025 text/html ROS as noted in the HPI Since last visit, CCP 4.16.25 Donepezil started5.13.25 - Seen by Dr Ch neurology appt 03.10.25 - they will forego that one.5.14.25 - B12 692, folate> 20, TSH 1.026.16.25 - increase in donepezil caused diarrhea8.12.25 - seen by Neurologist - WADE, Akkgrxahzuam89.13.2 5 - fall Lives with her and son [...] on memantine. Dr. Calvo also prescribed Sinemet (carbidopa-levodopa ), which she takes twice daily in the [...] words. She previously received speech therapy through [facility] with a therapist named Madeleine and [...] symptoms a little bit Sandra Enriquez MD [address] [place] [address],[facility], [place], [address], [facility] 02/16/2025 10:54:25 OBGyn Episode No OBEpisode recorded.
--- OUTSIDE RECORDS SUMMARY | 2025-04-17 17:35 | XMS_ITS | Encounter Summary ---
Author Organization [facility] Address [address] [place] [address] Phone Care Team Providers Care Satellite Specialist Name Role Phone Jermain Lopez MD Primary Care Prov ider Cody Jenkins MD, PhD Unavailable [phone] Encounter Details Date Type Department Care Team (Late st Contact Info) Description 06/29/2024 Procedure Pass [facility], [address] [address] Social History Tobacco Use Types Packs/Day Years [...] Description 04/03/2026 2:40 PM EST Office Visit [facility] [address] [facility] [address]rd Floor, [address] [place] [address] Bharathi Palma MD [address] [facility], [address] [place] [address] [email or web address] documented as of this encounter Visit Diagnoses Not on filedocumented in this encounter Care Teams Satellite Specialist Relationship Specialty Start Date End Date Jermain Lopez MD [email or web address] PCP - General 02/13/17 Cody Jenkins MD, PhD [address] [address] [email or web address] Consulting Provider Hematology 03/15/21 documented as of this encounter Additional Source Comments The information contained in this document represents components of the legal health record. It is not the complete legal health record.[facility]
--- OUTSIDE RECORDS SUMMARY | 2025-04-17 17:35 | XMS_ITS | Patient Health Record ---
Author Organization [facility] Address [address] [place] [address] Care Team Providers Care Event Operations Manager Name Role Phone Johnny Baptiste MD, [facility] Provi saray Unavailable Елена Sahni Unavailable [phone] Allergies Allergen (clinical drug ingredient) Drug/Non Drug [...] primary osteoarthritis of the ankle and/or foot (440778814) Osteoarthritis of right ankle and foot (M19.071) Active confirmed Plan Of Treatment Pending Test Test Name Order Date X ray : Foot, right 3V 04/25/2021 Insurance Providers Payer Name Payer Address Payer Phone Subscriber Number Group Number Insured Name Patient Relationship to Insured Coverage Start Date Coverage End Date Medicare National Govt [employer] [address] [place] [address] [id number] Erika Parker Self - patient is the insured Medex Blue Shield [address] [place] [address] [id number] Erika Parker Self - patient is the insured Medical (General) History Medical History History ICD Code Back,Hip,and Knee pain CAD (Cholesterol) Gall bladder Heart disease High blood pressure Reflux ( GERD) Sciatica Headaches/Migraines Chicken pox Surgical History Surgery Date(Month/Year) gall bladder hysterectomy labiaplasty
--- OUTSIDE RECORDS SUMMARY | 2025-04-17 17:35 | XMS_ITS | Data Portability ---
Author Organization [facility] [address] Address [address] [place] [address] Care Team Providers Care Retail Sales Director Name Role Phone [facility] Primary Care Provider Assessment No assessment recorded. Plan of Treatment [...] By Organization Details Last Modified Time 05/28/2022 [id number] knee pain or injury: care instructions Not [...] Address Organization Details Recorded Time Hypertensive disorder 23878793 Active 2022 BAN DEPINTO null, [place] - [facility] 3 12:12:42 Atrial fibrillation 65820459 Active 2022 BAN KAILEEINTO mary ann, [place] - [facility] 3 12:13:58 Problem Notes None recorded. Procedures Surgical History Date Name Laterality Status Provider Name and Address Organization Details Recorded Time 05/28/19 23 Liang Bandage completed Josey Castelan, DO [address] [place], [address], [place] Jayne [facility] 05/28/2022 12:45:40 hysterectomy completed BAN DEPINTO PA - [facility] 05/28/2022 12:15:02 cholecystectomy completed BAN DEPINTO PA - [facility] 05/28/2022 12:15:09 procedure on urinary bladder completed ABN DEPINTO PA - [facility] 05/28/2022 12:16:04 Imaging Results None recorded. Procedure Notes None recorded. Medical Equipment None Reported. Allergies Allergen ID Allergen Name Allergen Category Reaction Reaction Severity Criticality Documentation Date Start Date Code Code System Note Provider Name and Address Organization Details Recorded Time 820037 Product containin g penicilli n (product) medicatio n diarrhea Not available Not available 05/28/2022 08430 8001 SNOMED BAN DEPINTO null, [place] - [facility] 3 12:10:00 825906 erythromy vanessa medicatio n other Not available Not available 05/28/2022 4053 RxNorm BAN DEPINTO null, PA - [facility] 3 12:10:08 419643 adhesive tape environme nt,medica tion rash severe Not available 05/28/2022 BAN DEPINTO null, PA - [facility] [...] [Score] - Reported Respiratory rate Oxygen saturation Heart rate Body temperature Systolic And Diastolic Provider Name and Address Organization Details Last Updated DateTime 3 162.56 cm 30 kg/m2 98691.6 6 g 0 18 /min 99 % 61 /min 97.4 [degF] 123/74 mm[Hg] BAN DEPINTO PA - [facility] [...] ICD10 Code Diagnosis IMO Codes Diagnosis Note [id number] [place] [address] [address] 05/28/2022 09:32:00 05/28/2022 12:41:41 Pain of right knee joint 1777625328 44962 M25.561 Health Concerns Section Related Observation LastModified by Organization Detai ls LastModified Time None Recorded Concern Status LastModified by Organization Details LastModified Time None Recorded Advance Directives Directive None Recorded Payers Insurance Date Sequence Insurance Name Policy Number Policy Silver Covered Member ID Silver Member ID Guarantor Name 05/28/2022 1 [place] [employer] Erika Trejo [id number] Erika Maya 05/28/2022 2 [place] [id number] Erika Wong Tindinesh [id number] Erika Maya Notes Date Note Type Note Provider Name and Address Organization Details Recorded Time 05/28/2022 text/html KneeReported by Patient Accompanied by sonR knee pain x 4 days. Atraumatic. Feels sharp, occurs with weight bearing, improves after walking. Ambulating with cane due to pain. Selt treatment: heat, ES Tylenol x 2 days. Josey Castelan, DO [address] [place], [address], [place] - [facility] 05/28/2022 12:46:47 OBGyn Episode No OBEpisode recorded.
--- OUTSIDE RECORDS SUMMARY | 2025-04-17 17:35 | XMS_ITS | Clinical Summary ---
Author Organization [facility] Address [address] [place] [address] Phone Care Team Providers Care Tape Stringer Name Role Phone Jermain Lopez MD Primary Care Prov ider Cody Jenkins MD, PhD Unavailable Allergies Active Allergy Reactions Criticality Noted Date Comments Erythromycin 03/25/2017 Latex Rash Low 04/01/2025 Penicillin G Benzathin,Procain 03/25/2017 Penicillins Diarrhea 04/01/2025 Other Reaction(s): GI REACTION Adhesive Dermatitis 01/22/2018 Irritated skin, swollen, red Medications Ca neft-V6-fjiscy -inos-silicon 300-200-37.5 mg-unit-mg Tab Activ e loratadine [...] Description 04/01/2025 4:00 PM EST Office Visit [facility] [address] [facility] [address], [address] [place], [place] [id number] Deedee Antony DNP Essential (primary) hypertension (Primary [...] Description 04/03/2026 2:40 PM EST Office Visit [facility] [address] [place] [address] [address]rd Floor, [address] [place], [place] [id number] Bharathi Palma MD [address] [place] [address], [address] [place] [address] [email or web address] Health Maintenance Due Date Last Done [...] file Insurance MEDICARE PART A & B SOLANO CROSS MEDEX SUPPLEMENT [facility] B [facility] MEDEX SUPPLE[facility] PART [facility] & B [employer] MEDEX SUPPLEMENT MEDICARE PART A & B [employer] MEDEX SUPPLEMENT MEDICARE PART A & B Informative [employer] MEDEX SUPPLEMENT [facility] MEDICARE PART A & B Informative CROSS MEDEX SUPPLEMENT MEDICARE PART A & B BLUE CROSS MEDEX SUPPLEMENT Member Subscriber Plan / Payer (Ef fective 2010-Present) Name:RinaRickie montielille Relation to Subscriber:Self Name:ANNELIESEGAURANGERIKA MONTIEL Payer ID:[id number] (NAIC) Type:Indemnity Address: [address] MEDICARE PART A & B Stock[place] MEDEX SUPPLEMENT [facility] MEDICARE PART A & B Informative CROSS MEDEX SUPPLEMENT [facility] Care Teams Tape Stringer Relationship Specialty Start Date End Date Jermain Lopez MD PCP - General 02/13/17 Cody Jenkins MD, PhD [address] [address] [email or web address] Consulting Provider Hematology 03/15/21 Additional Source Comments The information contained in this document represents components of the legal health record. It is not the complete legal health record.[facility]
[2025-04-17] MEDS: Lidocaine 4 % Patch ADH..PATCH 1 PATCH TRANSDERMA (17:39)
[2025-04-17 17:52] LABS: MANUAL DIFF FLAG NO
[2025-04-17 18:05] LABS: Alanine Aminotransferase 14 U/L (0-31); Albumin Level 3.9 g/dL (3.5-5.0); Alkaline Phosphatase 77 U/L (39-117); Anion Gap 13 (12-20); Aspartate Amino Transferase 25 U/L (5-31); Blood Urea Nitrogen 15 mg/dL (9-16); Calcium 9.3 mg/dL (8.4-10.2); Carbon Dioxide 26 mmol/L (22-29); Chloride 106 mmol/L (96-108); Creatinine Clr Calc Pharmacy 59.2; Estimated Glomerular Filt Rate > 60; Potassium 3.6 mmol/L (3.3-5.1); Sodium 141 mmol/L (135-145); Total Protein 7.4 g/dL (6.5-8.0)
[2025-04-17 18:07] LABS: Hematocrit 40.5 % (37.0-47.0); Hemoglobin 13.7 g/dl (12.0-16.0); INTERNATIONAL NORM RATIO 2.5 (0.9-1.1); Imm Gran Abs Auto 0.08 X10*3/uL (0.00-0.03); Imm Gran Pct Auto 1.0 % (0.0-0.4); Lymphocytes Absolute Auto 1.8 X10*3/uL (1.2-4.9); Mean Corpuscular HGB Conc 33.8 g/dl (31.0-35.0); Mean Corpuscular Hemoglobin 32.1 pg (27.0-33.0); Mean Corpuscular Volume 94.8 fL (80.0-98.0); NRBC Abs Auto 0.000 X10*3/uL (0.0-0.012); NRBC Pct Auto 0.0 /100WBC (0.0-0.2); Platelet Count 225 X10*3/uL (160-400); Prothrombin Time 29.4 SEC (11.2-13.5); Red Blood Count 4.27 X10*6/uL (4.20-5.50); White Blood Count 8.1 X10*3/uL (4.8-10.8)
[2025-04-17 18:23] VITALS: BP 141/57; PULSE 91; RESP 16; TEMP 36.6; O2SAT 97
[2025-04-17 19:33] LABS: Appearance Urine Clear; Glucose Urine UA Negative (Negative); PH 5.5 (5.0-9.0); Specific Gravity - Urine 1.010 (1.005-1.025)
[2025-04-17 19:37] VITALS: BP 154/88; PULSE 87; RESP 18; TEMP 36.4; O2SAT 97
[2025-04-17 20:04] VITALS: BP 154/88; PULSE 87; RESP 18; TEMP 36.4; O2SAT 97
== END 2025-04-17 20:04 | disposition home or self-care (01) ==
PROVIDERS: Nurse Practitioner Family; Emergency Provider Emergency Medicine; PCP Family Medicine
DX: S30.0XXA Contusion of lower back and pelvis, initial encounter (principal); W01.198A Fall on same level from slipping, tripping and stumbling with subsequent striking against other object, initial encounter; I10 Essential (primary) hypertension; I48.91 Unspecified atrial fibrillation; Z79.02 Long term (current) use of antithrombotics/antiplatelets; Z79.899 Other long term (current) drug therapy; Y93.89 Activity, other specified; Y92.010 Kitchen of single-family (private) house as the place of occurrence of the external cause; Y99.9 Unspecified external cause status
CPT/HCPCS: 36415; 70450; 71111; 72100; 72125; 73521; 80048; 80076; 81003; 85025; 85610; 99284; 99285

== ENCOUNTER → 2025-04-17 17:08 | Outpatient (BNV) | payer MEDICARE, SELFPAY | PROVIDERS: Emergency Provider Emergency Medicine; PCP Family Medicine; Visit Provider Radiology Diagnostic Radiology | DX: Z04.3 Encounter for examination and observation following other accident (principal) | CPT/HCPCS: 70450; 71111; 72100; 72125; 73521 ==